=== PATIENT | female | born 1980 | race Caucasian/White ===

== ENCOUNTER 2019-05-12 12:17 | Inpatient (IN) | payer MEDICARE, MEDICAID ==
[~2019-05-12] VITALS: Ht 157.5 cm; Wt 80.5 kg
[~2019-05-12 12:17] MED LIST: ALBU18HF2 INH; CLON-512 PO; FLUT16SP26 INH; MOT200T PO; TRAM50TA2 PO; ZIPR60CA7 PO; [UNRECOGNIZED DRUG - CODE] PO
[2019-05-12 20:45] VITALS: BP 135/89
[2019-05-12] MEDS ORDERED: loperamide 2mg capsule PO PRN (21:35)
[2019-05-12] MEDS: LORazepam 1 MG tablet PO PRN (21:49)
[2019-05-12] MEDS ORDERED: NO HOME MEDS (23:12)
--- NOTE | 2019-05-13 03:34 | NUR ---
Admit Note: This admit is a 38 y/o female, admitted directly from [facility] to the unit at 2014. She was accompanied to the unit by JEANIE Torres and . She was wanded for contraband, then taken to the shower where 2 RN's checked her skin. She was allowed to shower, then oriented to the unit and her room. She was cooperative with the admit process. The patient states that she lives with her mom. She claims that she and her mother were having an argument that got out of hand. The patient reportedly was banging her head against a wall and biting herself. She admits to banging her head, but states that she was possessed. The patient was guarded with information, and she seems to experience paranoid delusions, believing that her mother is the Devil. The patient's mom states that the patient hears voices and is talking to them all day. "She screams and yells at them." The patient has not been taking any medications. She has multiple PHF admissions, and has difficulty maintaining a home due to her symptoms.
[2019-05-13 07:10] LABS: HEMOGLOBIN A1C 5.2 % (4.5-6.2)
[2019-05-13 07:45] LABS: CHOL/HDL RATIO 3.5 (0.00-4.99); CHOLESTEROL 188 MG/DL (0-200); HDL CHOLESTEROL 54 MG/DL (35-60); LDL CHOLESTEROL 126 MG/DL (50-100); TRIGLYCERIDES 48 MG/DL (20-135)
[2019-05-13 08:00] VITALS: BP 134/80
[2019-05-13] MEDS: LORazepam 1 MG tablet PO PRN ×2 (09:48→18:14)
[2019-05-13] MEDS ORDERED: clonazePAM 1mg tablet PO ONE (12:35)
[2019-05-13] MEDS: hydrOXYzine 25 MG tablet PO PRN (16:54)
--- NOTE | 2019-05-13 17:12 | NUR ---
Nursing Progress Note: Legal hold: Client on involuntary status for DTS Report received from Yuli ELIZABETH with use of SBAR Why are they here: This admit is a 38 y/o female, admitted directly from [facility] to the unit at 2014. The patient states that she lives with her mom. She claims that she and her mother were having an argument that got out of hand. The patient reportedly was banging her head against a wall and biting herself. She admits to banging her head, but states that she was possessed. The patient was guarded with information, and she seems to experience paranoid delusions, believing that her mother is the Devil. The patient's mom states that the patient hears voices and is talking to them all day. "She screams and yells at them." The patient has not been taking any medications. She has multiple PHF admissions, and has difficulty maintaining a home due to her symptoms. Assessment What has happened this shift: Pt spent much of the day finding things to make issue of and threatening lawsuits upon d/c. For example, policy states no shaving above the knees and she wanted to shave her groin. Pt also c/o her meals. Pt exhibited delusional thoughts at times through out the day. At one point she stated that she needed more snacks to feed the babies in her belly, the babies want what they want Pt also observed sucking on a pacifier and she states it helps her with her anxiety. At times during the day as limits were set, pt would become loud and yelled derogatory statements at staff which required verbal limit setting which she hesitantly responded to. Pt did voice more delusional thoughts later in the day. Pt stated she was battling the spirits and the female techs here were all related and had stole her soul but that she had God on her side and she was going to win it back. S/I, H/I: denies A/VH: denies Sleep: no naps ADL's: showered once and wanted to take a second Group attendance: partial Were meds taken: yes Any med S/E no Mental Status Exam Appearance: green scrubs, clean Eye contact: good Behavior: labile Speech: clear Mood: paranoid Affect: anxious Thought process: tangential Thought Content: delusional Cognition: intact Insight: poor Judgment: fair Interventions PRN's used: ativan, klonopin, atarax Therapeutic interventions: AM provided 1:1 assessment with therapeutic communication and active listening; medication administration/education/monitoring, Q 15 minute safety checks. Restraints/seclusion/emergency medication: none Justification of Continued Inpatient Treatment: Pt exhibiting erratic behavior based on delusional thought content.
[2019-05-13] MEDS ORDERED: clonazePAM 1mg tablet PO PRN (17:30)
[2019-05-13 20:00] VITALS: BP 132/92
[2019-05-13] MEDS ORDERED: quetiapine 100mg tablet PO SCH (21:00)
--- NOTE | 2019-05-14 03:38 | NUR ---
Nursing Progress Note: Legal hold: Client on involuntary status for DTS Report received from CLARA Villela with use of SBAR Why are they here: This admit is a 38 y/o female, admitted directly from [facility] to the unit at 2014. The patient states that she lives with her mom. She claims that she and her mother were having an argument that got out of hand. The patient reportedly was banging her head against a wall and biting herself. She admits to banging her head, but states that she was possessed. The patient was guarded with information, and she seems to experience paranoid delusions, believing that her mother is the Devil. The patient's mom states that the patient hears voices and is talking to them all day. "She screams and yells at them." The patient has not been taking any medications. She has multiple PHF admissions, and has difficulty maintaining a home due to her symptoms. Assessment What has happened this shift: Patient pacing the hardin at the beginning of shift. Shortly after shift change she approached this poem writer to use a set of headphones in which she appeared to enjoy. The patient didn't remove headphones until returning to bed. She ate HS snack in the group room where she also took her medication. Patient did not remove the headset for physical assessment and didn't respond to any questions later on. Patient continues to wrap up in her blanket and suck on a pacifier when out in the hardin and group room. S/I, H/I: unable to assess A/VH: did not appear to be responding to internal stimuli Sleep: asleep at this time ADL's: independent Group attendance: no groups this shift Were meds taken: yes Any med S/E: None observed, none reported Mental Status Exam Appearance: green scrubs, clean, sucking on a pacifier while wrapped in a blanket Eye contact: good Behavior: labile, delusional Speech: clear Mood: anxious Affect: congruent to mood Thought process: unable to assess Thought Content: unable to assess Cognition: intact Insight: poor Judgment: fair Interventions PRN's used: none at this time Therapeutic interventions: AM provided 1:1 assessment with therapeutic communication and active listening; medication administration/education/monitoring, Q 15 minute safety checks. Restraints/seclusion/emergency medication: none Justification of Continued Inpatient Treatment: Pt exhibiting erratic behavior based on delusional thought content.
[2019-05-14 08:00] VITALS: BP 120/82
[2019-05-14] MEDS: clonazePAM 1mg tablet PO SCH ×2 (08:06→19:39)
[2019-05-14] MEDS: hydrOXYzine 25 MG tablet PO PRN (09:42)
[2019-05-14] MEDS: NICOTINE POLACRILEX 2 MG LOZENGE BC PRN ×3 (09:43→18:55)
[2019-05-14] MEDS: LORazepam 1 MG tablet PO PRN ×2 (10:47→16:09)
--- NOTE | 2019-05-14 18:38 | NUR ---
Nursing Progress Note: Legal hold: Client on involuntary status for DTS Report received from CLARA Roldan with use of SBAR Why are they here: This admit is a 38 y/o female, admitted directly from [facility] to the unit at 2014. The patient states that she lives with her mom. She claims that she and her mother were having an argument that got out of hand. The patient reportedly was banging her head against a wall and biting herself. She admits to banging her head, but states that she was possessed. The patient was guarded with information, and she seems to experience paranoid delusions, believing that her mother is the Devil. The patient's mom states that the patient hears voices and is talking to them all day. "She screams and yells at them." The patient has not been taking any medications. She has multiple PHF admissions, and has difficulty maintaining a home due to her symptoms. Assessment What has happened this shift: Patient was awake at change of shift., pleasant and calm, she became increasingly labile throughout the day trying to split staff and yelling at nurse. Stated she would like to "beat your face in" to this nurse. Demanding and inpatient, threatening staff verbally. Did not make any physical threats. Security did speak with patient regarding threats. She was medication compliant and eating well. Delusional and religiously preoccupied. "Read proverbs, I am the anti-momo." S/I, H/I: unable to assess A/VH: did not appear to be responding to internal stimuli Sleep: None ADL's: independent Group attendance: no Were meds taken: yes Any med S/E: None observed, none reported Mental Status Exam Appearance: green scrubs, clean, sucking on a pacifier while wrapped in a blanket Eye contact: good Behavior: labile, delusional Speech: clear Mood: anxious Affect: congruent to mood Thought process: unable to assess Thought Content: unable to assess Cognition: intact Insight: poor Judgment: poor Interventions PRN's used: Ativan, Atarax Therapeutic interventions: AM provided 1:1 assessment with therapeutic communication and active listening; medication administration/education/monitoring, Q 15 minute safety checks. Restraints/seclusion/emergency medication: none Justification of Continued Inpatient Treatment: Pt exhibiting erratic behavior based on delusional thought content.
[2019-05-14 19:57] VITALS: BP 144/103
[2019-05-14] MEDS: quetiapine 100mg tablet PO SCH (20:19)
--- NOTE | 2019-05-15 01:27 | NUR ---
Nursing Progress Note: Legal hold: 5150 Client on involuntary status for DTS Report received from CLARA Villela with use of SBAR Why are they here: This admit is a 38 y/o female, admitted directly from [facility] to the unit at 2015. The patient states that she lives with her mom. She claims that she and her mother were having an argument that got out of hand. The patient reportedly was banging her head against a wall and biting herself. She admits to banging her head, but states that she was possessed. The patient was guarded with information, and she seems to experience paranoid delusions, believing that her mother is the Devil. The patient's mom states that the patient hears voices and is talking to them all day. "She screams and yells at them." The patient has not been taking any medications. She has multiple PHF admissions, and has difficulty maintaining a home due to her symptoms. Assessment What has happened this shift: Pt spent majority of time in her room, listening to music or resting. During 1:1, pt was guarded when asked to elaborate on initial assessment questions. She stated "You'll find out when you find out. This place is going to have iron pellet tester. They'll hear about it." This RN checked in later to offer pt a snack and attempt to illicit more information from the pt. Pt stated she wasn't suicidal "God doesn't want me to " but is depressed 10/10. Pt spontaneously stated, "Crystal kicks me out of groups because I am with the spirits. It's wrong, but it's how they do it here." Pt has grandiose plans, stating "I'm going to open a hospital, a [facility], where patient's can come and hit the treadmill and get into classes without prerequisites but doctors are still present." Pt listening to headphones during medication pass, and was continuing to express yarsanism centered delusions, "I am possessed by spirits and I need them to get into someone else. This is just how it has to be." Pt compliant with medication administration, and attempted to sleep after meds were given. Pt up within the first two hours, asking for snacks and stating, "It's the spirits." This RN redirected pt to bed, and pt has been sleeping well. S/I, H/I: Denies A/VH: Denies Sleep: See Sleep Assessment ADL's: Independent Group attendance: N/A Were meds taken: Yes Any med S/E: None observed nor reported Mental Status Exam Appearance: Long hair in a ponytail, wearing unit green scrubs and nonskid socks, sucking on a pacifier and carrying two stuffed animals Eye contact: Direct Behavior: Resting in room, pacing halls, listening to headphones while dancing/rocking, Intermittent interaction with peers, Attended HS Snack, Guarded Speech: Clear, Normal Rate and Rhythm Mood: Depressed, Anxious, Labile, Easily Agitated Affect: Blunted Thought process: Delusional and paranoid Thought Content: Wants to discharge, Is planning on suing the hospital, Wanting snacks Cognition: A&Ox3 (off for event) Insight: Poor Judgment: Poor Interventions PRN's used: Nicotine Lozenge Therapeutic interventions: AM provided 1:1 assessment with therapeutic communication and active listening; medication administration/education/monitoring, Q 15 minute safety checks. Restraints/seclusion/emergency medication: none Justification of Continued Inpatient Treatment: Pt exhibiting manic, erratic behavior based on delusional thought content.
[2019-05-15] MEDS: clonazePAM 1mg tablet PO SCH ×2 (07:13→19:25)
[2019-05-15 08:00] VITALS: BP 139/105
[2019-05-15] MEDS: LORazepam 1 MG tablet PO PRN ×2 (09:07→15:28)
[2019-05-15] MEDS: quetiapine 100mg tablet PO SCH ×2 (10:52→20:28)
[2019-05-15] MEDS: NICOTINE POLACRILEX 2 MG LOZENGE BC PRN ×2 (11:44→14:05)
[2019-05-15] MEDS: hydrOXYzine 25 MG tablet PO PRN (14:05)
--- NOTE | 2019-05-15 15:50 | NUR ---
Nursing Progress Note: Legal hold: 5150 Client on involuntary status for DTS Report received from CLARA Villela with use of SBAR Why are they here: This admit is a 38 y/o female, admitted directly from [facility] to the unit at 2015. The patient states that she lives with her mom. She claims that she and her mother were having an argument that got out of hand. The patient reportedly was banging her head against a wall and biting herself. She admits to banging her head, but states that she was possessed. The patient was guarded with information, and she seems to experience paranoid delusions, believing that her mother is the Devil. The patient's mom states that the patient hears voices and is talking to them all day. "She screams and yells at them." The patient has not been taking any medications. She has multiple PHF admissions, and has difficulty maintaining a home due to her symptoms. Assessment What has happened this shift: Pt was up ambulating in the halls at change of shift with headphones on. She is seen dancing and singing. She is pleasant and cooperative with care and takes her morning medications. After breakfast, she is seen walking in the hallway speaking loudly and cussing followed by staff member. This communications writer followed her to her room and asked her why she was behaving this way. Patient states that she believes one of the nurses here is a witch and is working with [place]. Pt reports to me in a now normal tone without explitives, that she is an "dottie chosen by God and that witch nurse is putting cast out dogs from formerly [facility] in his ass". Pt continued to report that there are demons all over the earth as well as angels. Pt then proceeds to write down bible verses for this communications writer to look up to learn "the truth about what God really wants". She reports "God has given me the gift of interpretation, I am an interpreting dottie". She tells many staff members that she is discharging today and asks to get clothing out of the community closet. Pt looked in the clothing closet and states that "all of these clothes are the wrong size. This is what the demons do, they mess with me. They will make it where there are no clothes in here that fit me". She takes her medications without incident. She took a shower today and states that this made her feel good. A one time dose of seroquel was ordered and given at 1030. Since the administration of this medication, she has had decreased lability and no verbal outbursts. Pt reports she is anxious, PRN ativan is given for this. After lunch, Pt reports that she is feeling anxious still and PRN atarax was given as well as a nicotine lozenge per request. Pt eats snack and meals in the community room but does not participate in groups. Will continue to monitor. S/I, H/I: Denies A/VH: Denies Sleep: naps minimally throughout the day ADL's: Independent Group attendance: No Were meds taken: Yes Any med S/E: None observed nor reported Mental Status Exam Appearance: Long hair in a ponytail, wearing unit green scrubs and nonskid socks, sucking on a pacifier and carrying two stuffed animals Eye contact: Direct Behavior: Resting in room, pacing halls, listening to headphones while dancing/rocking, Intermittent interaction with peers, Guarded Speech: Clear, Normal Rate and Rhythm Mood: Anxious, Labile Affect: Blunted Thought process: Delusional and paranoid Thought Content: Wants to discharge, tenriism delusions and grandiose delusions: "I am an dottie chosen by God" Cognition: A&Ox3 (not ot event) Insight: Poor Judgment: Poor Interventions PRN's used: Nicotine Lozenge, atarax, ativan x2 Therapeutic interventions: AM provided 1:1 assessment with therapeutic communication and active listening; medication administration/education/monitoring, Q 15 minute safety checks. Restraints/seclusion/emergency medication: none Justification of Continued Inpatient Treatment: Pt exhibiting manic, erratic behavior based on delusional thought content.
[2019-05-15 20:00] VITALS: BP 144/94
[2019-05-15] MEDS ORDERED: zolpidem 5mg tablet PO SCH (21:00)
--- NOTE | 2019-05-15 23:36 | NUR ---
Nursing Progress Note: Legal hold: 5250 Client on involuntary status for DTS Report received from CLARA Villela with use of SBAR Why are they here: This admit is a 38 y/o female, admitted directly from [facility] to the unit at 2014. The patient states that she lives with her mom. She claims that she and her mother were having an argument that got out of hand. The patient reportedly was banging her head against a wall and biting herself. She admits to banging her head, but states that she was possessed. The patient was guarded with information, and she seems to experience paranoid delusions, believing that her mother is the Devil. The patient's mom states that the patient hears voices and is talking to them all day. "She screams and yells at them." The patient has not been taking any medications. She has multiple PHF admissions, and has difficulty maintaining a home due to her symptoms. Assessment What has happened this shift: Pt agitated regarding headphones at change of shift, requesting any PRNs she had available. After discussion with the RN, pt decided she would wait for her give anti-anxiety medication. Pt seemed calmer after this discussion, so this RN completed 1:1 at bedside. 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 I need to see a medical MD to get this sorted. I want Amistad or Dilaudid, it's what I used to take." Pt states she is depressed but not suicidal, but did not wish to elaborate on the circumstances that are making her feel this way, becoming defensive and guarded, "I don't really feel like talking about it." Pt visited mom for approximately 10 minutes before the mother was escorted out due to the pt becoming agitated. After the visit the pt was walking the halls stating "That fucking bitch, never want to see her. She has angels trying to control everything, thinks I don't know". This RN directed pt to room and encourage pt to not feed into that negative energy with negative words; pt considered this and stated "I'm just telling someone about it." RN gave give anxiolytic and pt listened to music via headphones, saying that they are helpful, too. MD Alvarez discussed pt's 5250 and pain management. This RN had pt sign 5250; pt wrote numerous political, yazidism, and fictional people on it as "People I will have represent me. These are all my upper leather sorter." After signing, pt requested a snack and was agreeable, telling this RN "Thank you." added Ambien to nightly regimen to help pt achieve better sleep. S/I, H/I: Denies A/VH: Denies Sleep: See Sleep Assessment ADL's: Independent Group attendance: N/A Were meds taken: Yes Any med S/E: None observed nor reported Mental Status Exam Appearance: Long hair in a ponytail, wearing unit green scrubs and nonskid socks, sucking on a pacifier and carrying two stuffed animals Eye contact: Direct Behavior: Resting in room, pacing halls, listening to headphones, Intermittent interaction with peers, Attended HS Snack, Guarded, Visitation with mother Speech: Clear, Normal Rate and Rhythm Mood: [id number], Anxious 8/10, Easily Agitated & Labile Affect: Blunted Thought process: Delusional Thought Content: Wanting opiates, not wanting to live with her mom Cognition: A&Ox3 (off for event) Insight: Poor Judgment: Poor Interventions PRN's used: None Therapeutic interventions: AM provided 1:1 assessment with therapeutic communication and active listening; medication administration/education/monitoring, Q 15 minute safety checks. Restraints/seclusion/emergency medication: none Justification of Continued Inpatient Treatment: Pt exhibiting manic, erratic behavior based on delusional thought content. Addendum: 05/16/19 at 0455 by Carolyn Joyner RN 399: Pt awoke requesting headphones. Pt given headphones. 447: Pt awoke requesting Ativan; RN explained that the MD had discontinued it-- offered available PRNs. Pt because increasingly agitated stating "You're a stupid bitch, you wrote things on my affadavit that are not true. You are being surveyed, you are a shell sieve operator or nurse practicioner or whatever, you don't know what the fuck you are doing. You're lying to me, and I'm going take care of it." Pt is pointing at RN and stating "I know you took my fucking meds bitch, you are so fucking high." Addendum: 05/16/19 at 0510 by Carolyn Joyner RN Pt approached this RN again, pointing fingers accusing this RN of taking her medications. "I'm onto you. TITUS is on your asses." Pt continues name calling and pacing. RN attempted de-escalation techniques of redirection, open body posture, providing space to no avail; pt overtalked and mocked this RN. Addendum: 05/16/19 at 0516 by Carolyn Joyner RN Order from SARAN Siddiqui to administer 2mg Ativan PO Once. Addendum: 05/16/19 at 05 by Carolyn Joyner RN Ativan Administered. During administration pass, pt is accusing RNs of being high then laughing, say "Oh sure, Brenedn's sisters. You're all fucking high." Pt is hypervigilant and continues to pace halls with headphones after Ativan is taken. Addendum: 05/16/19 at 0538 by Carolyn Joyner RN Pt is not willing to go rest in her room; she is standing in the hardin making yazidism comments and telling staff that they are going to hell and she is a part of the TITUS.
[2019-05-16] MEDS ORDERED: LORazepam 1 MG tablet PO ONE (05:05)
[2019-05-16 08:00] VITALS: BP 133/85
[2019-05-16] MEDS: clonazePAM 1mg tablet PO SCH ×2 (08:00→18:38)
[2019-05-16] MEDS: quetiapine 100mg tablet PO SCH ×4 (08:00→19:26)
[2019-05-16 09:45] VITALS: BP 133/85
[2019-05-16] MEDS: mag hydrox/Alum hydrox/simeth 30ml oral suspension PO PRN (11:47)
[2019-05-16] MEDS: NICOTINE POLACRILEX 2 MG LOZENGE BC PRN (11:48)
--- NOTE | 2019-05-16 15:32 | NUR ---
Nursing Progress Note: Legal hold: 5250 Client on involuntary status for DTS Report received from CLARA Villela with use of SBAR Why are they here: This admit is a 38 y/o female, admitted directly from [facility] to the unit at 2014. The patient states that she lives with her mom. She claims that she and her mother were having an argument that got out of hand. The patient reportedly was banging her head against a wall and biting herself. She admits to banging her head, but states that she was possessed. The patient was guarded with information, and she seems to experience paranoid delusions, believing that her mother is the Devil. The patient's mom states that the patient hears voices and is talking to them all day. "She screams and yells at them." The patient has not been taking any medications. She has multiple PHF admissions, and has difficulty maintaining a home due to her symptoms. Assessment What has happened this shift: Client was awake and ambulating on unit to start shift. Client seems religiously preoccupied and made several statements about, "saving Delroy" using her, "power". No behavioral issues as of this writing. Client will redirect but sometimes takes several prompts. Compliant with medications and assessment this am. She wants, "Ativan and Roxies" and plans to request these medications once she sees a Doctor today. Client has been focused on food this am and had to be redirected x 3 as she was hoarding and consuming am snacks. Client complains of generalized pain and requested Motrin. Dr. Ricco lee. Client seems to be seeking Ativan and, "my Roxies" at frequent intervals. Client had a visit with the Doctor today which she tolerated well. S/I, H/I: Denies A/VH: Denies Sleep: See Sleep Assessment ADL's: Independent Group attendance: N/A Were meds taken: Yes Any med S/E: None observed nor reported Mental Status Exam Appearance: Long hair in a ponytail, wearing unit green scrubs and nonskid socks, sucking on a pacifier and carrying two stuffed animals Eye contact: Direct Behavior: Resting in room, pacing halls, listening to headphones, Intermittent interaction with peers, Attended HS Snack, Guarded, Visitation with mother Speech: Clear, Normal Rate and Rhythm Mood: [id number]/10, Anxious 8/10, Easily Agitated & Labile Affect: Blunted Thought process: Delusional Thought Content: Wanting opiates, not wanting to live with her mom Cognition: A&Ox4 Insight: Poor Judgment: Poor Interventions PRN's used: None Therapeutic interventions: AM provided 1:1 assessment with therapeutic communication and active listening; medication administration/education/monitoring, Q 15 minute safety checks. Restraints/seclusion/emergency medication: none Justification of Continued Inpatient Treatment: Pt exhibiting manic, erratic behavior, delusional thought process.
[2019-05-16] MEDS: LORazepam 1 MG tablet PO PRN (16:54)
[2019-05-16] MEDS: OLANZapine 2.5MG tablet PO PRN (18:38)
[2019-05-16 20:00] VITALS: BP 139/95
--- NOTE | 2019-05-17 04:16 | NUR ---
Nursing Progress Note: Legal hold: 5250 Client on involuntary status for DTS Report received from MARY Ellis with use of SBAR Why are they here: This admit is a 38 y/o female, admitted directly from [facility] to the unit at 2014. The patient states that she lives with her mom. She claims that she and her mother were having an argument that got out of hand. The patient reportedly was banging her head against a wall and biting herself. She admits to banging her head, but states that she was possessed. The patient was guarded with information, and she seems to experience paranoid delusions, believing that her mother is the Devil. The patient's mom states that the patient hears voices and is talking to them all day. "She screams and yells at them." The patient has not been taking any medications. She has multiple PHF admissions, and has difficulty maintaining a home due to her symptoms. Assessment What has happened this shift: Pt pacing the halls with headphones and sucking on pacifier majority of shift. She attended HS Snack; 1:1 done in the hallway as pt did not wish to go to her room. Pt states she is "the same" as yesterday and did not want to elaborate further "Just give me my meds, I know what time I am to get each one." Pt expressed some religiosity chris to previous shifts, and had intermittent bursts of cussing while walking but not directed at any individual in particular. Pt went to bed shortly after medication administration. S/I, H/I: Denies A/VH: Denies Sleep: See Sleep Assessment ADL's: Independent Group attendance: N/A Were meds taken: Yes Any med S/E: None observed nor reported Mental Status Exam Appearance: Long hair in a ponytail, wearing unit green scrubs and nonskid socks, sucking on a pacifier Eye contact: Direct Behavior: Resting in room, pacing halls, listening to headphones, Attended HS Snack, Guarded Speech: Clear, Normal Rate and Rhythm Mood: [id number]/10, Anxious 8/10, Easily Agitated & Labile Affect: Blunted Thought process: Delusional Thought Content: Getting a addiction counselor Cognition: A&Ox3 (off for event) Insight: Poor Judgment: Poor Interventions PRN's used: None Therapeutic interventions: AM provided 1:1 assessment with therapeutic communication and active listening; medication administration/education/monitoring, Q 15 minute safety checks. Restraints/seclusion/emergency medication: none Justification of Continued Inpatient Treatment: Pt exhibiting manic, erratic behavior based on delusional thought content.
[2019-05-17] MEDS: LORazepam 1 MG tablet PO PRN ×2 (05:30→12:54)
[2019-05-17] MEDS: quetiapine 100mg tablet PO SCH ×3 (07:01→18:41)
[2019-05-17] MEDS: OLANZapine 2.5MG tablet PO PRN ×3 (07:01→17:00)
[2019-05-17] MEDS: clonazePAM 1mg tablet PO SCH ×2 (07:03→18:41)
[2019-05-17 08:17] VITALS: BP 136/77
[2019-05-17] MEDS: NICOTINE POLACRILEX 2 MG LOZENGE BC PRN ×3 (09:07→17:00)
--- NOTE | 2019-05-17 09:47 | NUR ---
Initial: Pt admit w/ psychosis AOx3. PO 75-100% regular diet meeting needs. LBM 05/17. No nutrition concerns at this time. Will continue to monitor. Rec: 1. continue regular diet 2. routine bowel care Addendum: 05/17/19 at [address] Amended: Links added.
[2019-05-17] MEDS: quetiapine 100mg tablet PO PRN (14:59)
--- NOTE | 2019-05-17 17:09 | NUR ---
Nursing Progress Note: Legal hold: 5250 Client on involuntary status for DTS Report received from Deneen Betancourt RN with use of SBAR Why are they here: This admit is a 38 y/o female, admitted directly from [facility] to the unit at 2014. The patient states that she lives with her mom. She claims that she and her mother were having an argument that got out of hand. The patient reportedly was banging her head against a wall and biting herself. She admits to banging her head, but states that she was possessed. The patient was guarded with information, and she seems to experience paranoid delusions, believing that her mother is the Devil. The patient's mom states that the patient hears voices and is talking to them all day. "She screams and yells at them." The patient has not been taking any medications. She has multiple PHF admissions, and has difficulty maintaining a home due to her symptoms. Assessment What has happened this shift: Pt is ambulating in the halls at change of shift. Pt asks immediately upon this technical document writer entering the unit if she can have her PRN Zyprexa and Ativan. Explained to Pt that it was too early for administration of Ativan, but scheduled medications and PRN Zyprexa were given without incident. Pt continues to have fixed delusions rooted in religiosity and states "I am an arch dottie". She denies HI/SI, VH, but she does report that she talks to "other angels and they talk back". She eats her meals and snacks in the community room. She is seen after breakfast in the [place] telling a unit tech loudly that her "production utility worker is watching you already". She had a shower today. She was heard yelling in her room after lunch and was found by a unit tech who reports that she was holding the headphones and when asked by this nurse what was going on, she stated that she was possessed by the anti-Kingsley and that he biting her. Bite rojas seen on bilateral hands, no broken skin or bleeding noted. Charge nurse informed of behavior. S/I, H/I: Denies A/VH: Denies, but states that she hears and talks to "other angels". Sleep: rests intermittently throughout the day ADL's: Independent Group attendance: Were meds taken: Yes Any med S/E: None observed nor reported Mental Status Exam Appearance: Long hair in a ponytail, wearing unit green scrubs and nonskid socks Eye contact: Direct Behavior: Resting in room, pacing halls, listening to headphones, Guarded Speech: Clear, Normal Rate and Rhythm Mood: Depressed 7/10, Anxious 10/10, Easily Agitated & Labile Affect: Blunted Thought process: Delusional Thought Content: Getting a production utility worker, "I am an arch dottie chosen by God" Cognition: A&Ox3 (off for event) Insight: Poor Judgment: Poor Interventions PRN's used: None Therapeutic interventions: AM provided 1:1 assessment with therapeutic communication and active listening; medication administration/education/monitoring, Q 15 minute safety checks. Restraints/seclusion/emergency medication: none Justification of Continued Inpatient Treatment: Pt exhibiting manic, erratic behavior based on delusional thought content.
[2019-05-17 20:00] VITALS: BP 127/88
--- NOTE | 2019-05-18 00:33 | NUR ---
Nursing Progress Note: Legal hold: 5250 Client on involuntary status for DTS Report received from MARY Prado with use of SBAR Why are they here: This admit is a 38 y/o female, admitted directly from [facility] to the unit at 2014. The patient states that she lives with her mom. She claims that she and her mother were having an argument that got out of hand. The patient reportedly was banging her head against a wall and biting herself. She admits to banging her head, but states that she was possessed. The patient was guarded with information, and she seems to experience paranoid delusions, believing that her mother is the Devil. The patient's mom states that the patient hears voices and is talking to them all day. "She screams and yells at them." The patient has not been taking any medications. She has multiple PHF admissions, and has difficulty maintaining a home due to her symptoms. Assessment What has happened this shift: Pt walking around unit and approached this RN requesting give medications at start of shift. Medications given; pt went to bedroom to rest and this RN completed 1:1 at bedside. Pt maintains latter day delusions regarding others being possessed by spirits. She presented as more sedated than usual but requested PRN Ativan-- RN educated pt to wait until she really needs it and let the medications just given take effect first to evaluate whether the PRN is necessary. Pt agreed. She states her depression is 8/10 and Anxiety 7/10. She went to sleep after assessment but woke for HS snack then returned to bed where she promptly fell asleep. S/I, H/I: Denies A/VH: Denies Sleep: See Sleep Assessment ADL's: Independent Group attendance: N/A Were meds taken: Yes Any med S/E: None observed nor reported Mental Status Exam Appearance: Long hair, wearing unit green scrubs and nonskid socks, wearing headphones Eye contact: Direct Behavior: Resting in room, listening to headphones, Attended HS Snack Speech: Clear, Normal Rate and Rhythm Mood: Depressed 8/10, Anxious 7/10, Easily Agitated & Labile Affect: Blunted Thought process: Delusional Thought Content: Wanting PRN medications, Delusions Cognition: A&Ox3 (off for event) Insight: Poor Judgment: Poor to fair Interventions PRN's used: None Therapeutic interventions: AM provided 1:1 assessment with therapeutic communication and active listening; medication administration/education/monitoring, Q 15 minute safety checks. Restraints/seclusion/emergency medication: none Justification of Continued Inpatient Treatment: Pt exhibiting manic, erratic behavior based on delusional thought content.
[2019-05-18] MEDS: LORazepam 1 MG tablet PO PRN ×3 (00:47→13:38)
[2019-05-18] MEDS: quetiapine 100mg tablet PO SCH ×3 (07:11→19:12)
[2019-05-18] MEDS: clonazePAM 1mg tablet PO SCH ×2 (07:13→19:12)
[2019-05-18] MEDS: OLANZapine 2.5MG tablet PO PRN ×3 (07:14→16:27)
[2019-05-18 07:46] VITALS: BP 126/84
[2019-05-18] MEDS ORDERED: tuberculin, purif. prot. deriv. 5 units/0.1ml ID ONE (11:00)
--- NOTE | 2019-05-18 11:00 | NUR ---
DISCHARGE PLANNING: Called NAM and LVM, awaiting call back
--- NOTE | 2019-05-18 11:08 | NUR ---
DISCHARGE PLANNING: Called [place] [facility] and [facility]
--- NOTE | 2019-05-18 13:56 | NUR ---
DISCHARGE PLANNING: Sent referral to [facility]
--- NOTE | 2019-05-18 16:25 | NUR ---
Nursing Progress Note: Legal hold: 5250 Client on involuntary status for DTS Report received from MARY Onofre with use of SBAR Why are they here: This admit is a 38 y/o female, admitted directly from [facility] to the unit at 2014. The patient states that she lives with her mom. She claims that she and her mother were having an argument that got out of hand. The patient reportedly was banging her head against a wall and biting herself. She admits to banging her head, but states that she was possessed. The patient was guarded with information, and she seems to experience paranoid delusions, believing that her mother is the Devil. The patient's mom states that the patient hears voices and is talking to them all day. "She screams and yells at them." The patient has not been taking any medications. She has multiple PHF admissions, and has difficulty maintaining a home due to her symptoms. Assessment What has happened this shift: Pt is up and ambulating in the hallway at change of shift. She reports that she is anxious and asks for medications upon first seeing this parts data writer. She is pleasant and cooperative with care. She took a shower after breakfast and was found yelling and crying sitting outside of the shower. She reports that she lost her red stuffed bear. This parts data writer had found the stuffed animal on the floor outside of the community room and returned it to the patient. Pt was grateful. She reports being anxious throughout the day and reports perseverating on a word that she can't remember. She reports that "the torn wheat of [place] took the word out of my head as soon as I remembered it". PRN Ativan and Zyprexa were given throughout the day. Pt had 2 episodes of raised voice when using the telephone but was redirectable. S/I, H/I: Denies A/VH: Denies Sleep: naps intermittently throughout the day ADL's: Independent Group attendance: no Were meds taken: Yes Any med S/E: None observed nor reported Mental Status Exam Appearance: Long hair, wearing unit green scrubs and nonskid socks Eye contact: Direct Behavior: Resting in room, listening to headphones, talking on the phone Speech: Clear, Normal Rate and Rhythm Mood: Depressed 8/10, Anxious 7/10, Easily Agitated & Labile Affect: Blunted Thought process: Delusional Thought Content: Wanting PRN medications, Delusions Cognition: A&Ox3 (off for event) Insight: Poor Judgment: Poor to fair Interventions PRN's used: None Therapeutic interventions: AM provided 1:1 assessment with therapeutic communication and active listening; medication administration/education/monitoring, Q 15 minute safety checks. Restraints/seclusion/emergency medication: none Justification of Continued Inpatient Treatment: Pt exhibiting manic, erratic behavior based on delusional thought content.
--- NOTE | 2019-05-18 16:35 | NUR ---
Director Product Management for the [facility] was in to interview this patient.
[2019-05-18 19:41] VITALS: BP 135/90
[2019-05-18] MEDS: QUEtiapine 25mg tablet PO PRN (20:32)
--- NOTE | 2019-05-18 20:47 | NUR ---
Nursing Progress Note: Legal hold: 5250 Client on involuntary status for DTS Report received from MARY Topete with use of SBAR Why are they here: This admit is a 38 y/o female, admitted directly from [facility] to the unit at 2014. The patient states that she lives with her mom. She claims that she and her mother were having an argument that got out of hand. The patient reportedly was banging her head against a wall and biting herself. She admits to banging her head, but states that she was possessed. The patient was guarded with information, and she seems to experience paranoid delusions, believing that her mother is the Devil. The patient's mom states that the patient hears voices and is talking to them all day. "She screams and yells at them." The patient has not been taking any medications. She has multiple PHF admissions, and has difficulty maintaining a home due to her symptoms. Assessment What has happened this shift: Pt was resting in bed talking on the phone at change of shift. Pt denies s/i, denies h/i, pt denies a/vh but is seen talking to herself wandering the hallway. Pt naps intermittently during the shift and spends time listening to music quietly in her room prior to bed. Pt reports her day was good. S/I, H/I: Denies A/VH: Denies Sleep: naps intermittently throughout the day ADL's: Independent Group attendance: no Were meds taken: Yes Any med S/E: None observed nor reported Mental Status Exam Appearance: Long hair, wearing unit green scrubs and nonskid socks Eye contact: Direct Behavior: Resting in room, listening to headphones, talking on the phone Speech: Clear, Normal Rate and Rhythm Mood: Depressed, anxious Affect: Blunted Thought process: Delusional Thought Content: Wanting PRN medications, Delusions Cognition: A&Ox3 (off for event) Insight: Poor Judgment: Poor to fair Interventions PRN's used: None Therapeutic interventions: AM provided 1:1 assessment with therapeutic communication and active listening; medication administration/education/monitoring, Q 15 minute safety checks. Restraints/seclusion/emergency medication: none Justification of Continued Inpatient Treatment: Pt exhibiting manic, erratic behavior based on delusional thought content.
[2019-05-19] MEDS: OLANZapine 2.5MG tablet PO PRN ×2 (01:18→07:25)
[2019-05-19] MEDS: LORazepam 1 MG tablet PO PRN ×3 (04:21→15:45)
[2019-05-19] MEDS: NICOTINE POLACRILEX 2 MG LOZENGE BC PRN ×3 (07:25→12:30)
[2019-05-19] MEDS: clonazePAM 1mg tablet PO SCH ×2 (07:25→18:26)
[2019-05-19] MEDS: QUEtiapine 25mg tablet PO SCH ×2 (07:54→12:30)
[2019-05-19 08:00] VITALS: BP 141/93
--- NOTE | 2019-05-19 13:07 | NUR ---
DISCHARGE PLANNING: Accepted to [facility] as long as they have beds on dc. Call Quang, [phone] when dc ready, will not accept patient on a saturday
--- NOTE | 2019-05-19 16:33 | NUR ---
Nursing Progress Note: Legal hold: 5250 Client on involuntary status for DTS Report received from MARY Roldan with use of SBAR Why are they here: This admit is a 38 y/o female, admitted directly from [facility] to the unit at 2014. The patient states that she lives with her mom. She claims that she and her mother were having an argument that got out of hand. The patient reportedly was banging her head against a wall and biting herself. She admits to banging her head, but states that she was possessed. The patient was guarded with information, and she seems to experience paranoid delusions, believing that her mother is the Devil. The patient's mom states that the patient hears voices and is talking to them all day. "She screams and yells at them." The patient has not been taking any medications. She has multiple PHF admissions, and has difficulty maintaining a home due to her symptoms. Assessment What has happened this shift: Pt was resting in bed peacefully at change of shift. Pt denies SI/HI, pt denies AH/VH but is seen talking to herself wandering the hallway. Pt naps intermittently during the shift and spends time listening to music. She eats meals and snacks in the community room and takes her medications without incident. She took multiple showers today. She reported some concerns regarding her medications being changed. She was worried that she was no longer getting PRN Zyprexa. Explained to patient that Zyprexa was changed to Seroquel PRN. Pt verbalized understanding. S/I, H/I: Denies A/VH: Denies Sleep: naps intermittently throughout the day ADL's: Independent Group attendance: no Were meds taken: Yes Any med S/E: None observed nor reported Mental Status Exam Appearance: Long hair in ponytail, wearing unit green scrubs and nonskid socks Eye contact: Direct Behavior: Resting in room, listening to headphones, talking on the phone Speech: Clear, Normal Rate and Rhythm Mood: Depressed, anxious Affect: Blunted Thought process: Delusional Thought Content: Wanting PRN medications, Delusions Cognition: A&Ox3 (off for event) Insight: Poor Judgment: Poor to fair Interventions PRN's used: None Therapeutic interventions: AM provided 1:1 assessment with therapeutic communication and active listening; medication administration/education/monitoring, Q 15 minute safety checks. Restraints/seclusion/emergency medication: none Justification of Continued Inpatient Treatment: Pt exhibiting manic, erratic behavior based on delusional thought content.
--- NOTE | 2019-05-19 17:37 | NUR ---
Nursing Progress Note: Legal hold: T-con Client on involuntary status for GD Report received from MARY LOPEZ with use of SBAR Why are they here: Pt. was brought to the ER by EMS and is currently on a 5250 for GD, she is unable to provide for her own food, clothing, or intermediate. Pt. has a history of schizophrenia, and per her disease case manager her psychosis has been increasing and she has been non-compliant with medications. What happened this shift: Pt was sitting in community room at change of shift. She is pleasant and cooperative with care and takes her medications without incident. She is smiling. Pt denies SI/HI/AH/VH, however, She was heard in the shower room talking and yelling at someone who was not there. She reports leg pain stating "it hurts from my hips to my toes". Pt was positioned in bed with legs elevated and pt reported that this alleviated the pain. This hand sign writer trimmed the patient's toenails per request. Pt had a shower. She ate her meals and snacks in the community room. She requested that this hand sign writer braid her hair and this request was accommodated. Assessment: S/I, H/I: Denies A/VH: Denies, though she appears to be responding to internal stimuli Sleep: rests intermittently in the day ADL's: Independent Group attendance: No Were meds taken: Yes Any med S/E: None reported nor observed Mental Status Exam Appearance: Clean with long combed hair in a two gricelda, wearing green scrubs and nonskid socks Eye contact: Direct Behavior: resting, reading a book in her room, walking in the hallway Speech: Clear, Normal rate and rhythm Mood: reports good mood Affect: Animated Thought process: Delusional Thought Content: Fixed Delusions Cognition: A/Ox3 Insight: Poor Judgment: Poor Interventions PRN's used: Therapeutic interventions: 1:1 assessment, establishment of rapport, maintained safe therapeutic milieu, provided active listening with positive feedback, provided medication education and monitored for effects, monitored for change in behavior and provided needed interventions. Q 15 minute safety checks. Restraints/seclusion/emergency medication: N/A Justification of Continued Inpatient Treatment: Continued therapeutic support and medication management needed to provide stabilization, prevent decompensation, improve coping mechanisms decreasing risk to patient and re-admittance. Pt is now conserved.
[2019-05-19] MEDS ORDERED: quetiapine 100mg tablet PO SCH (19:00)
[2019-05-19 19:35] VITALS: BP 153/100
[2019-05-19] MEDS: QUEtiapine 25mg tablet PO PRN (19:53)
[2019-05-19] MEDS ORDERED: zolpidem 5mg tablet PO PRN (20:30)
--- NOTE | 2019-05-19 21:37 | NUR ---
Nursing Progress Note: Legal hold: 5250 Client on involuntary status for DTS Report received from MARY Villela with use of SBAR Why are they here: This admit is a 38 y/o female, admitted directly from [facility] to the unit at 2014. The patient states that she lives with her mom. She claims that she and her mother were having an argument that got out of hand. The patient reportedly was banging her head against a wall and biting herself. She admits to banging her head, but states that she was possessed. The patient was guarded with information, and she seems to experience paranoid delusions, believing that her mother is the Devil. The patient's mom states that the patient hears voices and is talking to them all day. "She screams and yells at them." The patient has not been taking any medications. She has multiple PHF admissions, and has difficulty maintaining a home due to her symptoms. Assessment What has happened this shift: Pt was walking in the hallway at change of shift. Pt denies s/i, denies a/vh, but was seen talking to herself in her room. Pt reports waking every hour or 1/2 hour during the night, she has trouble sleeping the entire night. We discussed taking less naps during the day and attempting to establish a regular sleeping pattern. Pt attempted to remain out of bed but then wanted to go to bed early. Pt talks about participating in groups today and shows me her art work she calls "tempestuous" and states this means "good and evil, yin and burdick" so she hawa a sun and millard. Pt was in a pleasant mood this evening listening to music and dancing. pt reports her appetite is "huge!" S/I, H/I: Denies A/VH: Denies Sleep: naps intermittently ADL's: Independent Group attendance: no Were meds taken: Yes Any med S/E: None observed nor reported Mental Status Exam Appearance: Long hair in ponytail, wearing unit green scrubs and nonskid socks Eye contact: Direct Behavior: listening to headphones, dancing Speech: Clear, Normal Rate and Rhythm Mood: anxious, although smiling and dancing Affect: Blunted Thought process: Delusional Thought Content: Wanting PRN medications, Delusions Cognition: A&Ox3 (off for event) Insight: Poor Judgment: Poor to fair Interventions PRN's used: None Therapeutic interventions: AM provided 1:1 assessment with therapeutic communication and active listening; medication administration/education/monitoring, Q 15 minute safety checks. Restraints/seclusion/emergency medication: none Justification of Continued Inpatient Treatment: Pt exhibiting manic, erratic behavior based on delusional thought content. Addendum: 05/20/19 at 0605 by Janet Tavares RN pt complaining about acid stomach and requested maalox.
[2019-05-19] MEDS: mag hydrox/Alum hydrox/simeth 30ml oral suspension PO PRN (22:05)
[2019-05-19] MEDS: quetiapine 100mg tablet PO PRN (22:06)
[2019-05-20] MEDS: LORazepam 1 MG tablet PO PRN ×2 (03:01→11:00)
[2019-05-20] MEDS: mag hydrox/Alum hydrox/simeth 30ml oral suspension PO PRN ×2 (06:04→16:12)
[2019-05-20] MEDS: QUEtiapine 25mg tablet PO SCH ×2 (07:53→13:18)
[2019-05-20] MEDS: clonazePAM 1mg tablet PO SCH ×2 (07:53→19:23)
[2019-05-20 08:00] VITALS: BP 122/90
[2019-05-20] MEDS: quetiapine 100mg tablet PO PRN (08:59)
[2019-05-20] MEDS: NICOTINE POLACRILEX 2 MG LOZENGE BC PRN ×2 (08:59→13:19)
--- NOTE | 2019-05-20 14:54 | NUR ---
PPD result: no induration noted - negative result
[2019-05-20] MEDS: clonazePAM 0.5mg tablet PO PRN (17:05)
--- NOTE | 2019-05-20 17:05 | NUR ---
Nursing Progress Note: Legal hold: 5250 Client on involuntary status for DTS Report received from MARY Roldan with use of SBAR Why are they here: This admit is a 38 y/o female, admitted directly from [facility] to the unit at 2014. The patient states that she lives with her mom. She claims that she and her mother were having an argument that got out of hand. The patient reportedly was banging her head against a wall and biting herself. She admits to banging her head, but states that she was possessed. The patient was guarded with information, and she seems to experience paranoid delusions, believing that her mother is the Devil. The patient's mom states that the patient hears voices and is talking to them all day. "She screams and yells at them." The patient has not been taking any medications. She has multiple PHF admissions, and has difficulty maintaining a home due to her symptoms. Assessment What has happened this shift: Patient up in visible on the unit pacing around most of the day. Patient did have one point during the day when she becomes very agitated and unapproachable. It seemed this was due to an increase in delusional thought process is, you FBI and TITUS people are all the same. Youre always out to get me. I felt you through the radio station patient left alone for a while and then when she came back out of her room she was a lot less paranoid and agitated and requested Maalox which she refused for indigestion. Patient denies suicidal thoughts. Pt perseverating on getting her medications updated by Dr. Bobby. Pt asked about ten times if he had changed the medications yet (which eventually did happen). S/I, H/I: Denies A/VH: Denies Sleep: naps intermittently throughout the day ADL's: Independent Group attendance: no Were meds taken: Yes Any med S/E: None observed nor reported Mental Status Exam Appearance: Long hair in ponytail, wearing unit green scrubs and nonskid socks Eye contact: Direct Behavior: Resting in room, listening to headphones, talking on the phone Speech: Clear, Normal Rate and Rhythm Mood: Depressed, anxious Affect: Blunted Thought process: Delusional Thought Content: Wanting PRN medications, Delusions Cognition: A&Ox3 (off for event) Insight: Poor Judgment: Poor to fair Interventions PRN's used: None Therapeutic interventions: AM provided 1:1 assessment with therapeutic communication and active listening; medication administration/education/monitoring, Q 15 minute safety checks. Restraints/seclusion/emergency medication: none Justification of Continued Inpatient Treatment: Pt exhibiting manic, erratic behavior based on delusional thought content.
[2019-05-20] MEDS: quetiapine 100mg tablet PO SCH (19:23)
[2019-05-20] MEDS: oxcarbazepine 150mg tablet PO SCH (19:23)
[2019-05-20 19:57] VITALS: BP 138/78
[2019-05-20] MEDS: QUEtiapine 25mg tablet PO PRN (22:45)
[2019-05-21] MEDS: clonazePAM 0.5mg tablet PO PRN ×4 (05:08→20:07)
[2019-05-21] MEDS: mag hydrox/Alum hydrox/simeth 30ml oral suspension PO PRN (05:16)
--- NOTE | 2019-05-21 05:25 | NUR ---
Nursing Progress Note: Legal hold: 5250 Client on involuntary status for DTS Report received from MARY Villela with use of SBAR Why are they here: This admit is a 38 y/o female, admitted directly from [facility] to the unit at 2014. The patient states that she lives with her mom. She claims that she and her mother were having an argument that got out of hand. The patient reportedly was banging her head against a wall and biting herself. She admits to banging her head, but states that she was possessed. The patient was guarded with information, and she seems to experience paranoid delusions, believing that her mother is the Devil. The patient's mom states that the patient hears voices and is talking to them all day. "She screams and yells at them." The patient has not been taking any medications. She has multiple PHF admissions, and has difficulty maintaining a home due to her symptoms. Assessment What has happened this shift: Pt was in her room at change of shift. Pt was in pleasant mood at the beginning of shift. Reports she had a good day but was requesting evening meds. Explained to patient she would need to wait for the scheduled time. Pt received a visit from her mother and reports the visit went well. Pt states "it was good but she's my old mom shes not my new mom, so much has changed shes not my mom anymore." Pt was tearful during the night and states "you wouldn't understand." Pt continues to have a large appetite and does not sleep well at night. She wakes often asking for prns, headphones, snacks, and reporting bad dreams. S/I, H/I: Denies A/VH: Denies Sleep: poor ADL's: Independent Group attendance: no Were meds taken: Yes Any med S/E: None observed nor reported Mental Status Exam Appearance: Long hair in ponytail, wearing unit green scrubs and nonskid socks Eye contact: Direct Behavior: Resting in room, listening to headphones, talking on the phone Speech: Clear, Normal Rate and Rhythm Mood: Depressed, anxious Affect: Blunted, labile tearful at times. Thought process: Delusional Thought Content: Wanting PRN medications, Delusions Cognition: A&Ox3 (off for event) Insight: Poor Judgment: Poor to fair Interventions PRN's used: Maalox, seroquel, klonopin Therapeutic interventions: AM provided 1:1 assessment with therapeutic communication and active listening; medication administration/education/monitoring, Q 15 minute safety checks. Restraints/seclusion/emergency medication: none Justification of Continued Inpatient Treatment: Pt exhibiting manic, erratic behavior based on delusional thought content.
[2019-05-21] MEDS: clonazePAM 1mg tablet PO SCH ×2 (07:27→19:03)
[2019-05-21] MEDS: QUEtiapine 25mg tablet PO SCH ×2 (07:28→13:31)
[2019-05-21] MEDS: oxcarbazepine 150mg tablet PO SCH ×2 (07:30→08:00)
[2019-05-21] MEDS ORDERED: clonazePAM 1mg tablet PO ONE (07:45)
[2019-05-21] MEDS ORDERED: oxcarbazepine 150mg tablet PO ONE (07:45)
[2019-05-21 08:00] VITALS: BP 124/87
[2019-05-21] MEDS: NICOTINE POLACRILEX 2 MG LOZENGE BC PRN ×2 (11:23→19:04)
--- NOTE | 2019-05-21 17:01 | NUR ---
Nursing Progress Note: Katarzyna Legal hold: 5250 Client on involuntary status for DTS Report received from Yuli ELIZABETH Why are they here: This admit is a 38 y/o female, admitted directly from [facility] to the unit at 2014. The patient states that she lives with her mom. She claims that she and her mother were having an argument that got out of hand. The patient reportedly was banging her head against a wall and biting herself. She admits to banging her head, but states that she was possessed. The patient was guarded with information, and she seems to experience paranoid delusions, believing that her mother is the Devil. The patient's mom states that the patient hears voices and is talking to them all day. "She screams and yells at them." The patient has not been taking any medications. She has multiple PHF admissions, and has difficulty maintaining a home due to her symptoms. Assessment What has happened this shift: Pt was in her room at change of shift. Pt was in pleasant mood and amicable to medications as well as assessment. Client seems fixated on her Klonopin and continually requests the medication. There have been no behavioral issues as of this writing. Client went to small TV room to watch it with peers. S/I, H/I: Denies A/VH: Denies Sleep: poor ADL's: Independent Group attendance: Were meds taken: Yes Any med S/E: None observed nor reported Mental Status Exam Appearance: Long hair in ponytail, wearing unit green scrubs and nonskid socks Eye contact: Direct Behavior: Resting in room, listening to headphones, talking on the phone Speech: Clear, Normal Rate and Rhythm Mood: Depressed, anxious Affect: Blunted, labile tearful at times. Thought process: Delusional Thought Content: Wanting PRN medications, Delusions Cognition: A&Ox3 (off for event) Insight: Poor Judgment: Poor to fair Interventions PRN's used: Maalox, seroquel, klonopin Therapeutic interventions: AM provided 1:1 assessment with therapeutic communication and active listening; medication administration/education/monitoring, Q 15 minute safety checks. Restraints/seclusion/emergency medication: none Justification of Continued Inpatient Treatment: Pt exhibiting manic, erratic behavior based on delusional thought content.
[2019-05-21] MEDS: quetiapine 100mg tablet PO SCH (19:04)
[2019-05-21] MEDS: ibuprofen 200mg tablet PO PRN (20:08)
[2019-05-21] MEDS ORDERED: clonazePAM 1mg tablet PO PRN (20:45)
[2019-05-21 20:56] VITALS: BP 141/99
[2019-05-22] MEDS: QUEtiapine 25mg tablet PO PRN (02:56)
--- NOTE | 2019-05-22 04:08 | NUR ---
Nursing Progress Note: Katarzyna Legal hold: 5250 Client on involuntary status for DTS Report received from Slava ELIZABETH Why are they here: This admit is a 38 y/o female, admitted directly from [facility] to the unit at 2014. The patient states that she lives with her mom. She claims that she and her mother were having an argument that got out of hand. The patient reportedly was banging her head against a wall and biting herself. She admits to banging her head, but states that she was possessed. The patient was guarded with information, and she seems to experience paranoid delusions, believing that her mother is the Devil. The patient's mom states that the patient hears voices and is talking to them all day. "She screams and yells at them." The patient has not been taking any medications. She has multiple PHF admissions, and has difficulty maintaining a home due to her symptoms. Assessment What has happened this shift: Patient active on the unit at the beginning of shift. Patient pleasant and cooperative. No outbursts this shift. Initiating conversation with peers and staff. No negative comments towards her mother made this shift. No delusional comments of the [employer]ITUS made this shit. Patient did not c/o night terrors this shift and appeared to have rested well. She continues to use pacifier as a coping mechanism. Patient was able to pick out new clothing from the community closet and stated her excitement to try the new clothes. S/I, H/I: Denies A/VH: Denies Sleep: poor ADL's: Independent Group attendance: group room for HS snack Were meds taken: Yes Any med S/E: None observed nor reported Mental Status Exam Appearance: Long hair in ponytail, wearing pajama shorts and t-shirt Eye contact: Direct Behavior: initiating conversation with peers and staff, energetic, smiling Speech: Clear, Normal Rate and Rhythm Mood: anxious Affect: animated Thought process: tangential Thought Content: perseverates on medications Cognition: A&Ox3 (off for event) Insight: Poor Judgment: Poor to fair Interventions PRN's used: quetiapine, clonazepam, Motrin Therapeutic interventions: AM provided 1:1 assessment with therapeutic communication and active listening; medication administration/education/monitoring, Q 15 minute safety checks. Restraints/seclusion/emergency medication: none Justification of Continued Inpatient Treatment: Pt exhibiting manic, erratic behavior based on delusional thought content.
[2019-05-22] MEDS: NICOTINE POLACRILEX 2 MG LOZENGE BC PRN ×2 (06:13→09:38)
[2019-05-22] MEDS: QUEtiapine 25mg tablet PO SCH ×2 (07:36→12:25)
[2019-05-22] MEDS: oxcarbazepine 150mg tablet PO SCH (07:36)
[2019-05-22 08:00] VITALS: BP 139/100
[2019-05-22] MEDS ORDERED: clonazePAM 1mg tablet PO SCH (08:00)
--- NOTE | 2019-05-22 10:14 | NUR ---
DISCHARGE PLANNING: LVM for [facility], awaiting call back
[2019-05-22] MEDS ORDERED: clonazePAM 1mg tablet PO ONE (15:15)
[2019-05-22] MEDS ORDERED: quetiapine 100mg tablet PO ONE (15:15)
[2019-05-22] MEDS ORDERED: diphenhydrAMINE 50 mg/ml inj ONE (17:11)
[2019-05-22] MEDS ORDERED: haloperidol lactate 5mg/ml inj ONE (17:11)
[2019-05-22] MEDS ORDERED: LORazepam 2 mg/ml vial ONE (17:12)
--- NOTE | 2019-05-22 18:01 | NUR ---
seclusion note: Pt escalating, becoming verbally threatening and when security arrived, pt began cursing and threatening and posturing and challenging them, calling them out to fight. Pt walked without hands on to the seclusion room at 1715 and received IM injections without struggling. Pt continued to pace and threaten. Pt calmed at 1750 and one to one face to face completed. Pt released at 1750. Pt given dinner away from peers. Pt calm and cooperative. 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
--- NOTE | 2019-05-22 18:22 | NUR ---
Nursing Progress Note: Legal hold: 5250 Client on involuntary status for DTS Report received from Deneen ELIZABETH Why are they here: This admit is a 38 y/o female, admitted directly from [facility] to the unit at 2014. The patient states that she lives with her mom. She claims that she and her mother were having an argument that got out of hand. The patient reportedly was banging her head against a wall and biting herself. She admits to banging her head, but states that she was possessed. The patient was guarded with information, and she seems to experience paranoid delusions, believing that her mother is the Devil. The patient's mom states that the patient hears voices and is talking to them all day. "She screams and yells at them." The patient has not been taking any medications. She has multiple PHF admissions, and has difficulty maintaining a home due to her symptoms. Assessment What has happened this shift: Patient up in visible on unit. Patient perseverating on getting more medications for anxiety all morning and patient did exhibit paranoid delusional thoughts at times. Patient stated I am an dottie and I metabolize meds quicker patient became more and more psychotic and delusional as the day went on. This afternoon patient was frantic trying to drink some hot chocolate stating Saraphins are like dogs, hell hounds. we must eat chocolate to kill the demons in us theyre coming because I killed the devil patient then was laying on the floor crying because she stated she had lost her clothes. Patient apparently gave up her clothes earlier and said she didnt want them anymore so they were placed back in the donation closet. This lead to the seclusion episode previously charted. S/I, H/I: Denies A/VH: Denies Sleep: poor ADL's: Independent Group attendance: no Were meds taken: Yes Any med S/E: None observed nor reported Mental Status Exam Appearance: Long hair in ponytail, wearing unit green scrubs and nonskid socks Eye contact: Direct Behavior: Resting in room, listening to headphones, talking on the phone Speech: Clear, Normal Rate and Rhythm Mood: Depressed, anxious Affect: Blunted, labile tearful at times. Thought process: Delusional Thought Content: Wanting PRN medications, Delusions Cognition: A&Ox3 delusional to situation Insight: Poor Judgment: Poor to fair Interventions PRN's used: klonopin, seroquel, IM haldol, ativan, benadryl Therapeutic interventions: AM provided 1:1 assessment with therapeutic communication and active listening; medication administration/education/monitoring, Q 15 minute safety checks. Restraints/seclusion/emergency medication: none Justification of Continued Inpatient Treatment: Pt exhibiting manic, erratic behavior based on delusional thought content.
[2019-05-22] MEDS: quetiapine 100mg tablet PO SCH (19:59)
[2019-05-22 20:00] VITALS: BP 126/86
[2019-05-22] MEDS: clonazePAM 1mg tablet PO SCH (20:00)
[2019-05-22] MEDS: propranolol 10mg tablet PO SCH (20:16)
--- NOTE | 2019-05-23 04:30 | NUR ---
Nursing Progress Note: Katarzyna Legal hold: 5250 Client on involuntary status for DTS Report received from Slava ELIZABETH Why are they here: This admit is a 38 y/o female, admitted directly from [facility] to the unit at 2014. The patient states that she lives with her mom. She claims that she and her mother were having an argument that got out of hand. The patient reportedly was banging her head against a wall and biting herself. She admits to banging her head, but states that she was possessed. The patient was guarded with information, and she seems to experience paranoid delusions, believing that her mother is the Devil. The patient's mom states that the patient hears voices and is talking to them all day. "She screams and yells at them." The patient has not been taking any medications. She has multiple PHF admissions, and has difficulty maintaining a home due to her symptoms. Assessment What has happened this shift: Patient asleep in her lizbeth at the beginning of shift. Patient came out of her room for medications and remained pleasant and cooperative. When this nurse asked about the incident prior to shift change she explained she had high anxiety and began acting inappropriately. Patient continued to explain she felt "alone" when she during her high anxiety episode. She vaguely explained she made irrational decisions and was apologetic. Patient continues to express feelings of depression but denies all other symptoms. Patient went back to bed where she has remained since med pass. S/I, H/I: Denies A/VH: Denies Sleep: poor ADL's: Independent Group attendance: no Were meds taken: Yes Any med S/E: None observed nor reported Mental Status Exam Appearance: Long hair in ponytail, wearing pajama shorts and green scrub top Eye contact: Direct Behavior:calm, cooperative Speech: Clear, Normal Rate and Rhythm Mood: tires Affect: minimizing Thought process: tangential Thought Content: apologetic for outburst and inappropriate behavior with previous shift Cognition: A&Ox3 (off for event) Insight: Poor Judgment: Poor to fair Interventions PRN's used: none Therapeutic interventions: AM provided 1:1 assessment with therapeutic communication and active listening; medication administration/education/monitoring, Q 15 minute safety checks. Restraints/seclusion/emergency medication: none Justification of Continued Inpatient Treatment: Pt exhibiting manic, erratic behavior based on delusional thought content.
[2019-05-23] MEDS: propranolol 10mg tablet PO SCH ×3 (07:22→20:07)
[2019-05-23] MEDS: clonazePAM 1mg tablet PO SCH ×3 (07:23→20:07)
[2019-05-23] MEDS: oxcarbazepine 150mg tablet PO SCH (07:23)
[2019-05-23] MEDS: QUEtiapine 25mg tablet PO SCH ×2 (07:23→13:15)
[2019-05-23 08:36] VITALS: BP 113/77
[2019-05-23] MEDS: QUEtiapine 25mg tablet PO PRN ×2 (10:34→16:48)
--- NOTE | 2019-05-23 15:27 | NUR ---
Nursing Progress Note: Katarzyna Legal hold: 5250 Client on involuntary status for DTS Report received from Janie Why are they here: This admit is a 38 y/o female, admitted directly from [facility] to the unit at 2014. The patient states that she lives with her mom. She claims that she and her mother were having an argument that got out of hand. The patient reportedly was banging her head against a wall and biting herself. She admits to banging her head, but states that she was possessed. The patient was guarded with information, and she seems to experience paranoid delusions, believing that her mother is the Devil. The patient's mom states that the patient hears voices and is talking to them all day. "She screams and yells at them." The patient has not been taking any medications. She has multiple PHF admissions, and has difficulty maintaining a home due to her symptoms. Assessment What has happened this shift: Patient was ambulating on unit to begin the shift. No somatic complaints given. She was compliant with am assessment as well as medications. Ambulatory on unit and social with staff as well as peers. Client approached this administrative underwriter and wished to obtain her clothing that she discarded last evening. Client worked well with Tech to resolve problem and was able to secure clothing that was discarded last shift. Impulse control seems to be better than previous encounters. Medicated around 1030 hours today with Seroquel per orders for agitation. Client continues to request PRN medication at frequent intervals and seems to have no basis for request. At times, client will present for a PRN and not have the symptoms present that the medication treats. Client also has made several comments about getting out and, "doing a bunch of opioids and get real fucked up". S/I, H/I: Denies A/VH: Denies Sleep: poor ADL's: Independent Group attendance: Were meds taken: Any med S/E: None observed nor reported Mental Status Exam Appearance: Long hair in ponytail, personal attire Eye contact: Direct Behavior:calm, cooperative Speech: Clear, Normal Rate and Rhythm Mood: tires Affect: minimizing Thought process: tangential Thought Content: apologetic for outburst and inappropriate behavior with previous shift. Cognition: A&Ox3 (off for event) Insight: Poor Judgment: Poor to fair Interventions PRN's used: Therapeutic interventions: AM provided 1:1 assessment with therapeutic communication and active listening; medication administration/education/monitoring, Q 15 minute safety checks. Restraints/seclusion/emergency medication: none Justification of Continued Inpatient Treatment: Pt exhibiting manic, erratic behavior based on delusional thought content.
[2019-05-23] MEDS: NICOTINE POLACRILEX 2 MG LOZENGE BC PRN (17:31)
[2019-05-23 19:57] VITALS: BP 138/93
[2019-05-23] MEDS: quetiapine 100mg tablet PO SCH (20:09)
--- NOTE | 2019-05-24 00:49 | NUR ---
Nursing Progress Note: Katarzyna Legal hold: 5250 Client on involuntary status for DTS Report received from Slava ELIZABETH Why are they here: This admit is a 38 y/o female, admitted directly from [facility] to the unit at 2014. The patient states that she lives with her mom. She claims that she and her mother were having an argument that got out of hand. The patient reportedly was banging her head against a wall and biting herself. She admits to banging her head, but states that she was possessed. The patient was guarded with information, and she seems to experience paranoid delusions, believing that her mother is the Devil. The patient's mom states that the patient hears voices and is talking to them all day. "She screams and yells at them." The patient has not been taking any medications. She has multiple PHF admissions, and has difficulty maintaining a home due to her symptoms. Assessment What has happened this shift: Patient active on the unit at the beginning of shift. She is pleasant and cooperative to care this shift. The patient can be intrusive and attention seeking at times. Such as the patient met staff right at shift change to ask about clothing and she continued to ask until a plan was made to look at clothing with this scenario writer later in the shift but once plans were made she relaxed for a short time and then came up to staff and asked to shave her legs, again when plans were made she remained content and happy once plans were executed. Shortly after medications and shaving the patient went to bed. No outbursts or inappropriate behaviors observed at this time. Patient continues to endorse deprssion and denies SI, HI, A/VH. She continues to make delusional comments. S/I, H/I: Denies A/VH: Denies Sleep: poor ADL's: Independent Group attendance: no Were meds taken: Yes Any med S/E: None observed nor reported Mental Status Exam Appearance: Long hair in ponytail, wearing pajama shorts and top Eye contact: Direct Behavior:pleasant, cooperative, emotionally needy Speech: Clear, Normal Rate and Rhythm Mood: anxious Affect: congruent to mood Thought process: delusional Thought Content: clothing and shaving Cognition: A&Ox3 (off for event) Insight: Poor Judgment: Poor to fair Interventions PRN's used: none Therapeutic interventions: AM provided 1:1 assessment with therapeutic communication and active listening; medication administration/education/monitoring, Q 15 minute safety checks. Restraints/seclusion/emergency medication: none Justification of Continued Inpatient Treatment: Pt exhibiting manic, erratic behavior based on delusional thought content.
[2019-05-24] MEDS: clonazePAM 1mg tablet PO SCH ×3 (07:14→19:15)
[2019-05-24] MEDS: propranolol 10mg tablet PO SCH ×2 (07:15→13:30)
[2019-05-24] MEDS: QUEtiapine 25mg tablet PO SCH ×2 (07:15→13:31)
[2019-05-24] MEDS: oxcarbazepine 150mg tablet PO SCH (07:15)
[2019-05-24] MEDS: NICOTINE POLACRILEX 2 MG LOZENGE BC PRN (08:27)
[2019-05-24 08:45] VITALS: BP 122/90
[2019-05-24] MEDS: QUEtiapine 25mg tablet PO PRN ×2 (10:20→10:21)
--- NOTE | 2019-05-24 10:23 | NUR ---
reassessment: Pt PO 75-100% meals meeting needs. LBM 05/21. No nutrition concerns at this time. Will continue to monitor. Rec: 1. continue regular diet 2. routine bowel care Addendum: 05/24/19 at [address] Amended: Links added.
--- NOTE | 2019-05-24 16:12 | NUR ---
Client has been very needy this shift and has requested medications at frequent intervals this shift. If her needs are not met, client will seek out other staff members to address the same concern. Client has been social on unit with peers and has had one outburst in which she redirected without further incident. Client does appear sedated and her request for more prn Seroquel was denied by this marketing underwriter as it was contraindicated by Pharmacy. Client has been presenting to marketing underwriter every 5 minutes for prn medications and is very difficult to redirect once she is engaged. Client was seen by Hospitalist this afternoon for her 14 day evaluation. During examination, client complained of sever back pain. She was evaluated and no new orders were received for her complaint. Impulse control appears to be an issue for this client.
[2019-05-24] MEDS: mag hydrox/Alum hydrox/simeth 30ml oral suspension PO PRN (17:30)
[2019-05-24] MEDS ORDERED: propranolol 10mg tablet PO ONE (19:00)
[2019-05-24] MEDS: quetiapine 100mg tablet PO SCH (19:16)
[2019-05-24 19:58] VITALS: BP 130/91
--- NOTE | 2019-05-24 22:08 | NUR ---
Nursing Progress Note: Katarzyna Legal hold: 5250 Client on involuntary status for DTS Report received from Slava ELIZABETH Why are they here: This admit is a 38 y/o female, admitted directly from [facility] to the unit at 2014. The patient states that she lives with her mom. She claims that she and her mother were having an argument that got out of hand. The patient reportedly was banging her head against a wall and biting herself. She admits to banging her head, but states that she was possessed. The patient was guarded with information, and she seems to experience paranoid delusions, believing that her mother is the Devil. The patient's mom states that the patient hears voices and is talking to them all day. "She screams and yells at them." The patient has not been taking any medications. She has multiple PHF admissions, and has difficulty maintaining a home due to her symptoms. Assessment What has happened this shift: Pt was in the hallway at change of shift, immediately seeking out her nurse to discuss medications and is requesting prns. Discussed evening medication schedule with patient and she decided she would talk to the doctor tomorrow. Pt interacted with other patient and staff and is somewhat intrusive asking about other patients medications. Pt denies s/i, denies a/vh. She spends the evening listening to the headphones. Pt is asking to get into the clothes closet late onight but she appears to be sedated and was told we can check in the morning, because she is too sleepy. S/I, H/I: Denies A/VH: Denies Sleep: poor ADL's: Independent Group attendance: no Were meds taken: Yes Any med S/E: None observed nor reported Mental Status Exam Appearance: Long hair in ponytail, wearing pajama shorts and top, changes clothing several times Eye contact: Direct Behavior:pleasant, cooperative, intrusive Speech: Clear, Normal Rate and Rhythm Mood: anxious, depressed Affect: congruent to mood Thought process: delusional Thought Content: clothing and shaving Cognition: A&Ox3 (off for event) Insight: Poor Judgment: Poor to fair Interventions PRN's used: none Therapeutic interventions: AM provided 1:1 assessment with therapeutic communication and active listening; medication administration/education/monitoring, Q 15 minute safety checks. Restraints/seclusion/emergency medication: none Justification of Continued Inpatient Treatment: Pt exhibiting manic, erratic behavior based on delusional thought content.
[2019-05-25] MEDS: QUEtiapine 25mg tablet PO PRN ×3 (02:57→20:02)
[2019-05-25] MEDS: clonazePAM 1mg tablet PO SCH ×3 (07:01→18:27)
[2019-05-25] MEDS: QUEtiapine 25mg tablet PO SCH ×2 (07:01→12:45)
[2019-05-25] MEDS: propranolol 10mg tablet PO SCH ×2 (07:01→12:43)
[2019-05-25 08:00] VITALS: BP 124/72
[2019-05-25] MEDS: oxcarbazepine 150mg tablet PO SCH (08:54)
[2019-05-25] MEDS: NICOTINE POLACRILEX 2 MG LOZENGE BC PRN ×2 (15:53→20:02)
--- NOTE | 2019-05-25 17:10 | NUR ---
Nursing Progress Note: Legal hold: 5250 Client on involuntary status for DTS Report received from assembler 1st shift RN Why are they here: This admit is a 38 y/o female, admitted directly from [facility] to the unit at 2014. The patient states that she lives with her mom. She claims that she and her mother were having an argument that got out of hand. The patient reportedly was banging her head against a wall and biting herself. She admits to banging her head, but states that she was possessed. The patient was guarded with information, and she seems to experience paranoid delusions, believing that her mother is the Devil. The patient's mom states that the patient hears voices and is talking to them all day. "She screams and yells at them." The patient has not been taking any medications. She has multiple PHF admissions, and has difficulty maintaining a home due to her symptoms. Assessment What has happened this shift: Patient up in visible on the unit. Patients mother came this morning and brought her some make up which was checked through by the tech and the director and patient was allowed to keep certain items in her room. Patient applied a lot of make up and glitter to her eyelids. The make up was not climb like, but over the top for the situation. More like make up for a night club. Patient also put her hair into ponytails and was wearing a dress. Patient did state to the staff member, my libido is all messed up, on the show the lady who plays me on the show, just have sex with people, but I take care of myself patient also is very manipulative and during group she stated she felt sick and wanted to lie on her bed but said she needed the radio to help her relax. Patient also continuing to perseverate and getting different clothing items from the donation closet. S/I, H/I: Denies A/VH: Denies Sleep: poor ADL's: Independent Group attendance: no Were meds taken: Any med S/E: None observed nor reported Mental Status Exam Appearance: Long hair in ponytail, personal attire Eye contact: Direct Behavior:calm, cooperative Speech: Clear, Normal Rate and Rhythm Mood: tires Affect: minimizing Thought process: tangential Thought Content: apologetic for outburst and inappropriate behavior with previous shift. Cognition: A&Ox3 (off for event) Insight: Poor Judgment: Poor to fair Interventions PRN's used: Therapeutic interventions: AM provided 1:1 assessment with therapeutic communication and active listening; medication administration/education/monitoring, Q 15 minute safety checks. Restraints/seclusion/emergency medication: none Justification of Continued Inpatient Treatment: Pt exhibiting manic, erratic behavior based on delusional thought content.
[2019-05-25] MEDS: quetiapine 100mg tablet PO SCH (18:27)
[2019-05-25 20:31] VITALS: BP 133/93
--- NOTE | 2019-05-25 21:07 | NUR ---
Nursing Progress Note: Legal hold: 5250 Client on involuntary status for DTS Report received from Slava HERNANDEZ Why are they here: This admit is a 38 y/o female, admitted directly from [facility] to the unit at 2014. The patient states that she lives with her mom. She claims that she and her mother were having an argument that got out of hand. The patient reportedly was banging her head against a wall and biting herself. She admits to banging her head, but states that she was possessed. The patient was guarded with information, and she seems to experience paranoid delusions, believing that her mother is the Devil. The patient's mom states that the patient hears voices and is talking to them all day. "She screams and yells at them." The patient has not been taking any medications. She has multiple PHF admissions, and has difficulty maintaining a home due to her symptoms. Assessment What has happened this shift: Pt was in the hallway at change of shift. Pt was smiling and happy, showing me her glitter eye shadow, and she had her hair done nicely. She was waiting for her mother to come visit and she stated that she was expecting her to bring her clothing. Pts mother did not show up and patient became very upset. Pt began c/o her mother telling her she was not her mother anymore, and stealing her little pony collection. She complained "My mother just wants to keep my things for herself." Pt requested prn of seroquel and I suggested she attempt using a coping skill first. Pt attempted to listen to music but remained upset. She stated "My coping skill isnt working and I just need my meds." pt was given PRN. She then continues to be upset and had an outburst and began yelling because there wasnt a sandwich left in the snack tray and she began arguing w/a patient career based intervention coordinator over getting a sandwich. Provided patient with a sandwich and she was allowed to sit alone in her room and calm herself. Pt spent time listening to music before she went to bed. S/I, H/I: Denies A/VH: Denies Sleep: poor ADL's: Independent Group attendance: no Were meds taken:yes Any med S/E: None observed nor reported Mental Status Exam Appearance: Clean, adequately groomed and dressed in personal attire Eye contact: Direct Behavior: intrusive, agitated Speech: Clear, Normal Rate and Rhythm Mood: anxious, depressed Affect: Labile Thought process: tangential Thought Content: perseverates on having clothing for discharge to the [facility], wants clothing from the clothes closet, gets upset about her mom not providing clothes. Cognition: A&Ox3 (off for event) Insight: Poor Judgment: Poor to fair Interventions PRN's used: Therapeutic interventions: AM provided 1:1 assessment with therapeutic communication and active listening; medication administration/education/monitoring, Q 15 minute safety checks. Restraints/seclusion/emergency medication: none Justification of Continued Inpatient Treatment: Pt exhibiting manic, erratic behavior based on delusional thought content. Addendum: 05/26/19 at 0130 by Janet Tavares RN Pt wakes often during the night requesting snacks, asking for headphones or to charge the headphones. She appears very sedated each time she comes to the nursing station and is redirected back to bed.
[2019-05-26] MEDS: QUEtiapine 25mg tablet PO SCH ×2 (07:23→12:54)
[2019-05-26] MEDS: propranolol 10mg tablet PO SCH ×2 (07:23→12:53)
[2019-05-26] MEDS: clonazePAM 1mg tablet PO SCH ×3 (07:23→19:03)
[2019-05-26] MEDS: oxcarbazepine 150mg tablet PO SCH ×2 (07:23→19:03)
[2019-05-26 08:33] VITALS: BP 121/90
[2019-05-26] MEDS: QUEtiapine 25mg tablet PO PRN ×2 (10:20→23:13)
--- NOTE | 2019-05-26 16:52 | NUR ---
Nursing Progress Note: Legal hold: 5250 Client on involuntary status for DTS Report received from shift supervisor rn RN Why are they here: This admit is a 38 y/o female, admitted directly from [facility] to the unit at 2014. The patient states that she lives with her mom. She claims that she and her mother were having an argument that got out of hand. The patient reportedly was banging her head against a wall and biting herself. She admits to banging her head, but states that she was possessed. The patient was guarded with information, and she seems to experience paranoid delusions, believing that her mother is the Devil. The patient's mom states that the patient hears voices and is talking to them all day. "She screams and yells at them." The patient has not been taking any medications. She has multiple PHF admissions, and has difficulty maintaining a home due to her symptoms. Assessment What has happened this shift: Patient up in visible on the unit. Pt again has excessive makeup on including glitter. It is more appropriate for a nightclub. Pt is calmer, but continues to exhibit hypomania: hyperverbal with pressured speech at times, restorationist and grandiose thoughts, Im an dottie sent by God. Im his coin Pt denies suicidal thoughts and denies auditory hallucinations. At one point another pt was screaming in her room and this pt sat outside the room and was antagonizing her. Pt compliant with redirection. Pt did request PRN for anxiety today and received 100mg of seroquel which did calm her down. S/I, H/I: Denies A/VH: Denies Sleep: poor ADL's: Independent Group attendance: no Were meds taken: Any med S/E: None observed nor reported Mental Status Exam Appearance: Long hair in ponytail, personal attire Eye contact: Direct Behavior:calm, cooperative Speech: Clear, Normal Rate and Rhythm Mood: tires Affect: minimizing Thought process: tangential Thought Content: apologetic for outburst and inappropriate behavior with previous shift. Cognition: A&Ox3 Insight: Poor Judgment: Poor to fair Interventions PRN's used: seroquel Therapeutic interventions: AM provided 1:1 assessment with therapeutic communication and active listening; medication administration/education/monitoring, Q 15 minute safety checks. Restraints/seclusion/emergency medication: none Justification of Continued Inpatient Treatment: Pt exhibiting manic, erratic behavior based on delusional thought content.
[2019-05-26] MEDS: quetiapine 100mg tablet PO SCH (19:04)
[2019-05-26 19:27] VITALS: BP 124/90
--- NOTE | 2019-05-26 23:24 | NUR ---
Nursing Progress Note: Legal hold: 5250 Client on involuntary status for DTS Report received from Jamaal HERNANDEZ Why are they here: This admit is a 38 y/o female, admitted directly from [facility] to the unit at 2014. The patient states that she lives with her mom. She claims that she and her mother were having an argument that got out of hand. The patient reportedly was banging her head against a wall and biting herself. She admits to banging her head, but states that she was possessed. The patient was guarded with information, and she seems to experience paranoid delusions, believing that her mother is the Devil. The patient's mom states that the patient hears voices and is talking to them all day. "She screams and yells at them." The patient has not been taking any medications. She has multiple PHF admissions, and has difficulty maintaining a home due to her symptoms. Assessment What has happened this shift: Pt was in the hallway at change of shift talking about her medication changes and her mother coming to visit. Pt asks for evening meds saying "I want to be sedated, I've been sedated since I was a kid and sedated is how I feel my best." Educated patient on when it's appropriate to take a prn and what the prn is for. pt states "I know, I know, agitation is the same as anxiety and I'm having anxiety so I need a prn." Pt is asking for prn seroquel. Explained to pt she has scheduled meds including seroquel dose she can take first before prns and pt agrees. Pt denies s/i, denies a/vh. Pt spent evening visiting w/her mother and was happy to get some more clothing from her mother. Pt continued to ask for prn even when given scheduled medications. Pt was encouraged to use coping skills and she did attempt to go to bed and sleep but then got up asking for her prn again. Pt was encouraged once again to use coping skills and she replied "Stop trying to act like a doctor and tell me about medicine, I know its for anxiety and I have anxiety now." pt was given prn and went back to bed and then returned to the nursing station shortly after asking for a nicotine lozenge stating she cant sleep. Pt was directed to try and sleep and she returned to her room. S/I, H/I: Denies A/VH: Denies Sleep: poor ADL's: Independent Group attendance: no Were meds taken: yes Any med S/E: None observed nor reported Mental Status Exam Appearance: Long hair in ponytail, personal attire Eye contact: Direct Behavior: calm cooperative, but becomes agitated easily with other patients. Speech: Clear, Normal Rate and Rhythm Mood: labile Affect: minimizing Thought process: tangential, grandiose Thought Content: "I can see things you can't see, I know you're a god, but I had to take your soul and you will see why at another time." Cognition: A&Ox3 Insight: Poor Judgment: Poor to fair Interventions PRN's used: seroquel Therapeutic interventions: AM provided 1:1 assessment with therapeutic communication and active listening; medication administration/education/monitoring, Q 15 minute safety checks. Restraints/seclusion/emergency medication: none Justification of Continued Inpatient Treatment: Pt exhibiting manic, erratic behavior based on delusional thought content.
[2019-05-27 07:51] VITALS: BP 118/85
[2019-05-27] MEDS: propranolol 10mg tablet PO SCH ×3 (07:59→19:11)
[2019-05-27] MEDS: QUEtiapine 25mg tablet PO SCH ×2 (07:59→13:07)
[2019-05-27] MEDS: oxcarbazepine 150mg tablet PO SCH ×2 (08:00→19:11)
[2019-05-27] MEDS: clonazePAM 1mg tablet PO SCH ×3 (08:00→19:11)
[2019-05-27] MEDS: QUEtiapine 25mg tablet PO PRN ×2 (10:10→20:55)
--- NOTE | 2019-05-27 15:52 | NUR ---
Nursing Progress Note: Katarzyna Legal hold: 5250 Client on involuntary status for DTS Report received Yuli ELIZABETH Why are they here: This admit is a 38 y/o female, admitted directly from [facility] to the unit at 2014. The patient states that she lives with her mom. She claims that she and her mother were having an argument that got out of hand. The patient reportedly was banging her head against a wall and biting herself. She admits to banging her head, but states that she was possessed. The patient was guarded with information, and she seems to experience paranoid delusions, believing that her mother is the Devil. The patient's mom states that the patient hears voices and is talking to them all day. "She screams and yells at them." The patient has not been taking any medications. She has multiple PHF admissions, and has difficulty maintaining a home due to her symptoms. Assessment: What has happened this shift: Pt was in the hallway at change of shift. Client engaged auto service writer and she explained that she was, ", and I need new clothes from downstairs". Client was also overheard this am telling her Mom via phone that she was, " with my baby". Client also engaged the reservation sales agent of the unit and explained to him that, "I am and it happened many years ago". Client will redirect but only for a while until she can engage another staff member in conversation. Client is fixated on clothing and requests several times an hour to, "find clothes that fit me, I am ". Client was disruptive in group today and was removed. Client also initiated a conflict with another peer that required several staff members to manage client's escalating behaviors. Client has been able to control her behaviors this afternoon but continues to seek Seroquel and Ativan at frequent intervals. S/I, H/I: Denies A/VH: Denies Sleep: poor ADL's: Independent Group attendance: Were meds taken: yes Any med S/E: None observed nor reported Mental Status Exam Appearance: Long hair in ponytail, personal attire Eye contact: Direct Behavior: calm cooperative, but becomes agitated easily with other patients. Speech: Clear, Normal Rate and Rhythm Mood: labile Affect: minimizing Thought process: tangential, grandiose Thought Content: "I can see things you can't see, I know you're a god, but I had to take your soul and you will see why at another time." Cognition: A&Ox3 Insight: Poor Judgment: Poor to fair Interventions PRN's used: Therapeutic interventions: AM provided 1:1 assessment with therapeutic communication and active listening; medication administration/education/monitoring, Q 15 minute safety checks. Restraints/seclusion/emergency medication: none Justification of Continued Inpatient Treatment: Pt exhibiting manic, erratic behavior based on delusional thought content.
[2019-05-27] MEDS: quetiapine 100mg tablet PO SCH (19:11)
[2019-05-27 20:10] VITALS: BP 110/87
--- NOTE | 2019-05-27 23:28 | NUR ---
Nursing Progress Note: Legal hold: 5250 Client on involuntary status for DTS Report received from day RN Why are they here: This admit is a 38 y/o female, admitted directly from [facility] to the unit at 2014. The patient states that she lives with her mom. She claims that she and her mother were having an argument that got out of hand. The patient reportedly was banging her head against a wall and biting herself. She admits to banging her head, but states that she was possessed. The patient was guarded with information, and she seems to experience paranoid delusions, believing that her mother is the Devil. The patient's mom states that the patient hears voices and is talking to them all day. "She screams and yells at them." The patient has not been taking any medications. She has multiple PHF admissions, and has difficulty maintaining a home due to her symptoms. Assessment What has happened this shift: Pt up and visible on the unit at start of shift. Pt hyperverbal with pressured speech and delusional thought content when talking to this RN. Pt going on and on r/t different bizarre theological philosophies she has like any person needs to get before to "inherrit the kingdom of God" Pt becomes upset (angry and tearful) when she feels this RN doesn't believe her thoughts. Pt has excessive makeup and was happy when a pair of pants were found that fit her. Pt requested and received PRN seroquel around 2100. Pt asleep at 2130 but up at 2245 requesting a snack and more medications. Staff declined both requests and after trying twice to request, pt returned to sleep. S/I, H/I: Denies A/VH: Denies Sleep: ADL's: Independent Group attendance: n/a Were meds taken: yes Any med S/E: None observed nor reported Mental Status Exam Appearance: excessive makeup Eye contact: Direct Behavior: calm cooperative, but becomes agitated easily with other patients. Speech: Clear, Normal Rate and Rhythm Mood: labile Affect: minimizing Thought process: tangential, grandiose Thought Content: religiously preoccupied Cognition: A&Ox3 Insight: Poor Judgment: Poor to fair Interventions PRN's used: seroquel Therapeutic interventions: AM provided 1:1 assessment with therapeutic communication and active listening; medication administration/education/monitoring, Q 15 minute safety checks. Restraints/seclusion/emergency medication: none Justification of Continued Inpatient Treatment: Pt exhibiting manic, erratic behavior based on delusional thought content.
[2019-05-28] MEDS: QUEtiapine 25mg tablet PO PRN ×2 (05:02→11:37)
[2019-05-28 07:09] VITALS: BP 122/87
[2019-05-28] MEDS: propranolol 10mg tablet PO SCH ×3 (07:12→19:00)
[2019-05-28] MEDS: oxcarbazepine 150mg tablet PO SCH ×2 (07:13→20:00)
[2019-05-28] MEDS: QUEtiapine 25mg tablet PO SCH (07:13)
[2019-05-28] MEDS: clonazePAM 1mg tablet PO SCH ×3 (07:13→21:00)
[2019-05-28 08:00] VITALS: BP 122/87
[2019-05-28 12:53] VITALS: BP 124/77
[2019-05-28] MEDS ORDERED: quetiapine 100mg tablet PO PRN (13:05)
[2019-05-28] MEDS ORDERED: quetiapine 100mg tablet PO ONE (13:05)
--- NOTE | 2019-05-28 18:23 | NUR ---
Nursing Progress Note: Legal hold: 5250 Client on involuntary status for DTS Report received from CLARA Roldan Why are they here: This admit is a 38 y/o female, admitted directly from [facility] to the unit at 2014. The patient states that she lives with her mom. She claims that she and her mother were having an argument that got out of hand. The patient reportedly was banging her head against a wall and biting herself. She admits to banging her head, but states that she was possessed. The patient was guarded with information, and she seems to experience paranoid delusions, believing that her mother is the Devil. The patient's mom states that the patient hears voices and is talking to them all day. "She screams and yells at them." The patient has not been taking any medications. She has multiple PHF admissions, and has difficulty maintaining a home due to her symptoms. Assessment What has happened this shift: Pt was up in her room at the change of shift. She was up around the unit throughout the day. Pt stated she feels crappy. She indicated she had no problem going to sleep, but kept waking up during the night. She reports having depression, a little anxiety, and denies SI. When asked about hallucinations she stated, "I don't believe in hallucinations, spiritual realm is good - God, the bad is the devil." She has delusions saying, "Sin eater is one of my khanna." The pt perseverated about getting different clothes from the donation closet. She also wanted the dosage of her Seroquel changed to three even doses throughout the day. Pt was labile and argued with other pt's in the group room. She had to be redirected to control her language. During the afternoon, the pt walked in the hallway with a pacifier in her mouth. S/I, H/I: Denies A/VH: Denies Sleep: Frequent awakenings during the night ADL's: Independent Group attendance: No Were meds taken: Yes Any med S/E: None observed nor reported Mental Status Exam Appearance: Long hair in ponytail, street clothes Eye contact: Direct Behavior:cooperative, but labile at times Speech: Normal rate and rhythm Mood: Labile Affect: Labile Thought process: Obsessive Thought Content: Perseverated about getting her Seroquel dosage changed. Cognition: A&Ox3 (off for event) Insight: Poor Judgment: Poor Interventions PRN's used: Seroquel Therapeutic interventions: AM provided 1:1 assessment with therapeutic communication and active listening; medication administration/education/monitoring, provide redirection for inappropriate behaviors, Q 15 minute safety checks. Restraints/seclusion/emergency medication: none Justification of Continued Inpatient Treatment: Pt exhibiting manic, erratic behavior based on delusional thought content. Continued therapeutic support and medication management needed to provide stabilization, prevent decompensation, decreasing risk to patient and readmittance.
[2019-05-28] MEDS: quetiapine 100mg tablet PO SCH (19:00)
[2019-05-28 20:00] VITALS: BP 133/93
[2019-05-28] MEDS ORDERED: haloperidol lactate 5mg/ml inj ONE (20:05)
[2019-05-28] MEDS ORDERED: LORazepam 2 mg/ml vial IM ONE (20:05)
[2019-05-28] MEDS ORDERED: haloperidol lactate 5mg/ml inj IM ONE (20:05)
[2019-05-28] MEDS ORDERED: diphenhydrAMINE 50 mg/ml inj ONE (20:05)
[2019-05-28] MEDS ORDERED: diphenhydrAMINE 50 mg/ml inj IM ONE (20:05)
[2019-05-28] MEDS ORDERED: LORazepam 2 mg/ml vial ONE (20:06)
--- NOTE | 2019-05-29 03:57 | NUR ---
Nursing Progress Note: Legal hold: 5250 Client on involuntary status for DTS Report received from CLARA Villela Why are they here: This admit is a 38 y/o female, admitted directly from [facility] to the unit at 2014. The patient states that she lives with her mom. She claims that she and her mother were having an argument that got out of hand. The patient reportedly was banging her head against a wall and biting herself. She admits to banging her head, but states that she was possessed. The patient was guarded with information, and she seems to experience paranoid delusions, believing that her mother is the Devil. The patient's mom states that the patient hears voices and is talking to them all day. "She screams and yells at them." The patient has not been taking any medications. She has multiple PHF admissions, and has difficulty maintaining a home due to her symptoms. Assessment What has happened this shift: Pt was up in her room sitting on the floor at change of shift. Patient agitated with the misunderstanding with her medication changes. Patient believed there to be a great change with her quetiapine and clonazepam, Doctor Artur visited with the patient to clarify minimal changes but patient unable to redirect. Patient demanding that she receive her last dose of clonazepam at 1900 with the rest of her medication and after talking with the doctor scheduled times were not to be changed at this time. Patient then refusing to take her medications and threatening to [facility] staff and hospital, stating we are causing her to harm herself. Patient was asked to lower her voice while in the hardin by staff and patient replied, "if you were not in that room I'd go over and punch you in the face." Patient then asked by her nurse and CRN to go sit in her room. Patient accompanied at distance while patient continued to walk down the hardin insulting staff members. After speaking with the doctor the patient received B52 (Ativan 2mg, Haldol 10mg and Benadryl 50mg). Patient went to bed shortly. No further behaviors at this time. S/I, H/I: Denies A/VH: Denies Sleep: Asleep at this time, refer to sleep assessment ADL's: Independent Group attendance: No Were meds taken: No Any med S/E: None observed nor reported Mental Status Exam Appearance: Disheveled, eyeliner smeared, long hair pulled back, street clothes Eye contact: Direct Behavior: Labile, resistive to care Speech: Normal rate and rhythm Mood: Labile Affect: congruent to mood Thought process: Obsessive Thought Content: Perseverated about getting her Seroquel dosage changed. Cognition: A&Ox3 (off for event) Insight: Poor Judgment: Poor Interventions PRN's used: Ativan 2mg, Haldol 10mg, Benadryl 50mg Therapeutic interventions: AM provided 1:1 assessment with therapeutic communication and active listening; medication administration/education/monitoring, provide redirection for inappropriate behaviors, Q 15 minute safety checks. Restraints/seclusion/emergency medication: emergency medication- B52 Justification of Continued Inpatient Treatment: Pt exhibiting manic, erratic behavior based on delusional thought content. Continued therapeutic support and medication management needed to provide stabilization, prevent decompensation, decreasing risk to patient and readmittance.
[2019-05-29] MEDS: clonazePAM 1mg tablet PO SCH ×4 (05:15→20:01)
[2019-05-29 07:36] VITALS: BP 120/83
[2019-05-29] MEDS: propranolol 10mg tablet PO SCH ×3 (07:38→19:04)
[2019-05-29] MEDS: quetiapine 100mg tablet PO SCH ×3 (07:39→19:04)
[2019-05-29] MEDS: oxcarbazepine 150mg tablet PO SCH ×3 (07:39→20:01)
--- NOTE | 2019-05-29 11:28 | NUR ---
Called [facility] office to inquire about [facility] referral. Quang reported Ct has been accepted however, they do not do admits on Fri. Informed her that Ct may not be appropriate for [facility]. Called Tawanda and left a message (ph# [phone]) asking him to return health underwriter's call to discuss Ct's referral. ISIAH Mar Lic # [id number]
[2019-05-29 12:51] VITALS: BP 127/88
[2019-05-29] MEDS: quetiapine 100mg tablet PO PRN (14:09)
--- NOTE | 2019-05-29 18:24 | NUR ---
Nursing Progress Note: Legal hold: Converted to voluntary Client on voluntary status for DTS Report received from CLARA Lima Why are they here: This admit is a 38 y/o female, admitted directly from [facility] to the unit at 2014. The patient states that she lives with her mom. She claims that she and her mother were having an argument that got out of hand. The patient reportedly was banging her head against a wall and biting herself. She admits to banging her head, but states that she was possessed. The patient was guarded with information, and she seems to experience paranoid delusions, believing that her mother is the Devil. The patient's mom states that the patient hears voices and is talking to them all day. "She screams and yells at them." The patient has not been taking any medications. She has multiple PHF admissions, and has difficulty maintaining a home due to her symptoms. Assessment What has happened this shift: Pt was sleeping at change of shift. She was compliant with medication administration and cooperative with assessment. She talked about her behavior last night that resulted in her receiving a B52. She indicated she didn't know what happened and she thinks a demon attacked her. She denies depression and SI. She says she does not believe in hallucinations she thinks they are the spiritual world. She reports anxiety. She stated she would act out to get the medications she received last night. At lunch, she was redirected not to ask other patients for the food off their trays. Pt signed in as a voluntary pt. S/I, H/I: Denies A/VH: Denies Sleep: no sleep during the day ADL's: Independent Group attendance: No Were meds taken: Yes Any med S/E: None observed nor reported Mental Status Exam Appearance: Street clothes, eye shadow with glitter Eye contact: Direct Behavior:cooperative, but labile at times Speech: Normal rate and rhythm Mood: Labile Affect: Labile Thought process: Perseverative Thought Content: Wanted her medications as soon as possible Cognition: A&Ox3 (off for event) Insight: Poor Judgment: Poor Interventions PRN's used: Seroquel Therapeutic interventions: AM provided 1:1 assessment with therapeutic communication and active listening; medication administration/education/monitoring, provide redirection for inappropriate behaviors, Q 15 minute safety checks. Restraints/seclusion/emergency medication: none Justification of Continued Inpatient Treatment: Pt exhibiting manic, erratic behavior based on delusional thought content. Continued therapeutic support and medication management needed to provide stabilization, prevent decompensation, decreasing risk to patient and readmittance.
[2019-05-29 19:00] VITALS: BP 144/88
--- NOTE | 2019-05-30 04:31 | NUR ---
Nursing Progress Note: Legal hold: Voluntary Client on involuntary status for DTS Report received from CLARA Villela Why are they here: This admit is a 38 y/o female, admitted directly from [facility] to the unit at 2014. The patient states that she lives with her mom. She claims that she and her mother were having an argument that got out of hand. The patient reportedly was banging her head against a wall and biting herself. She admits to banging her head, but states that she was possessed. The patient was guarded with information, and she seems to experience paranoid delusions, believing that her mother is the Devil. The patient's mom states that the patient hears voices and is talking to them all day. "She screams and yells at them." The patient has not been taking any medications. She has multiple PHF admissions, and has difficulty maintaining a home due to her symptoms. Assessment What has happened this shift: Patient visible on the unit at the beginning of the shift. Appeared emotionally needy as she went from needing her medication early to an early snack and when boundaries enforced she states, "my nurse doesn't care about me." Patient remained compliant with medications and reluctantly cooperated with boundaries set such as wait for scheduled times for her medication and eating snack at the same time as her peers. Patient continues to use her pacifier. Patient unhappy with not having PRN Ativan, however, was redirected with nicotine lozenge. No outbursts at this time. Denies SI, HI, A/VH. Patient expressed clear understanding of voluntary status. S/I, H/I: Denies A/VH: Denies Sleep: Asleep at this time, refer to sleep assessment ADL's: Independent Group attendance: No Were meds taken: Yes Any med S/E: None observed nor reported Mental Status Exam Appearance: Disheveled, dressed in the same sweatpants and T-shirt as previous night. Eye contact: Direct Behavior: Labile Speech: Normal rate and rhythm Mood: Labile Affect: congruent to mood Thought process: Obsessive Thought Content: wanting PRN Ativan Cognition: A&Ox3 (off for event) Insight: Poor Judgment: Poor Interventions PRN's used: Nicotine lozenge Therapeutic interventions: AM provided 1:1 assessment with therapeutic communication and active listening; medication administration/education/monitoring, provide redirection for inappropriate behaviors, Q 15 minute safety checks. Restraints/seclusion/emergency medication: emergency medication- B52 Justification of Continued Inpatient Treatment: Pt exhibiting manic, erratic behavior based on delusional thought content. Continued therapeutic support and medication management needed to provide stabilization, prevent decompensation, decreasing risk to patient and readmittance. Addendum: 05/30/19 at 0444 by Yessi Jones RN Restraints/seclusion/emergency medication: none.
[2019-05-30] MEDS: clonazePAM 1mg tablet PO SCH ×4 (05:53→20:13)
[2019-05-30] MEDS: quetiapine 100mg tablet PO SCH ×3 (07:02→20:13)
[2019-05-30] MEDS: oxcarbazepine 150mg tablet PO SCH ×2 (07:03→20:13)
[2019-05-30] MEDS: propranolol 10mg tablet PO SCH ×3 (07:03→20:13)
[2019-05-30 07:46] VITALS: BP 132/87
--- NOTE | 2019-05-30 08:41 | NUR ---
reassessment: Pt PO 75-100% meals meeting needs. LBM 05/29. No nutrition concerns at this time. Will continue to monitor. Rec: 1. continue regular diet 2. routine bowel care Addendum: 05/30/19 at [address] Amended: Links added.
[2019-05-30] MEDS: quetiapine 100mg tablet PO PRN (10:25)
--- NOTE | 2019-05-30 15:11 | NUR ---
Nursing Progress Note: Legal hold: Voluntary Client on involuntary status for DTS Report received from CLARA Bartlett Why are they here: This admit is a 38 y/o female, admitted directly from [facility] to the unit at 2014. The patient states that she lives with her mom. She claims that she and her mother were having an argument that got out of hand. The patient reportedly was banging her head against a wall and biting herself. She admits to banging her head, but states that she was possessed. The patient was guarded with information, and she seems to experience paranoid delusions, believing that her mother is the Devil. The patient's mom states that the patient hears voices and is talking to them all day. "She screams and yells at them." The patient has not been taking any medications. She has multiple PHF admissions, and has difficulty maintaining a home due to her symptoms. Assessment What has happened this shift: Patient approached this fha underwriter in the hardin immediately after arriving on the floor, and before receiving report. She was asking about her meds and a shower. Accepted explanation that she needed to wait until after change of shift and completion of AM routines of staff. Met with patient at approximately 0645 and discussed medication administration for the entire shift. Patient agreed with schedule and remained compliant with some redirection required. Patient states she is , when explained that her meds are harmful to unborn babies, she states that "as long as no one knows, God will protect the baby from any harm". This fha underwriter did verify negative HCG from previous facility. Continues to talk about Gods, Demons, and quotes from the bible appropriately then leads into vampires and witches. "vampires are day walkers, they were cursed, not by God, but if they repented they were allowed to walk during the day." "they don't need blood anymore, because they can make synthetic blood". "Did you know that they can make anything we need from baby stem cells?". Experienced one short outburst, was able to control level and walked to her room. Became very focused on medication stating that "Dr. Benavides is supposed to adjust my meds". She also stated "I think if I train Dr. Benavides to be a god, he will help me with my meds". S/I, H/I: Denies A/VH: Denies (demonstrates significant delusions) Sleep: 6.75 ADL's: Independent Group attendance: No Were meds taken: Yes Any med S/E: None observed nor reported Mental Status Exam Appearance: Hair combed back into a pony tail, wearing maxidress Eye contact: Direct Behavior: Labile Speech: Normal rate and rhythm Mood: Labile Affect: congruent to mood Thought process: Obsessive Thought Content: medication regimen, God's, Demons Cognition: A&Ox3 (off for event) Insight: Poor Judgment: Poor Interventions PRN's used: Serequel Therapeutic interventions: AM provided 1:1 assessment with therapeutic communication and active listening; medication administration/education/monitoring, provide redirection for inappropriate behaviors, Q 15 minute safety checks. Restraints/seclusion/emergency medication: emergency medication Justification of Continued Inpatient Treatment: Pt exhibiting manic, erratic behavior based on delusional thought content. Continued therapeutic support and medication management needed to provide stabilization, prevent decompensation, decreasing risk to patient and readmittance. Restraints/seclusion/emergency medication: none.
[2019-05-30] MEDS: NICOTINE POLACRILEX 2 MG LOZENGE BC PRN (16:09)
[2019-05-30 19:00] VITALS: BP 142/95
--- NOTE | 2019-05-30 22:21 | NUR ---
Nursing Progress Note: Legal hold: Voluntary Client on involuntary status for DTS Report received from CLARA Villela Why are they here: This admit is a 38 y/o female, admitted directly from [facility] to the unit at 2014. The patient states that she lives with her mom. She claims that she and her mother were having an argument that got out of hand. The patient reportedly was banging her head against a wall and biting herself. She admits to banging her head, but states that she was possessed. The patient was guarded with information, and she seems to experience paranoid delusions, believing that her mother is the Devil. The patient's mom states that the patient hears voices and is talking to them all day. "She screams and yells at them." The patient has not been taking any medications. She has multiple PHF admissions, and has difficulty maintaining a home due to her symptoms. Assessment What has happened this shift: Patient visible on the unit at the beginning of the shift. Continues to perseverates on the times medications to be administered. Patient Pleasant and cooperative with all care at this time. She is invasive to personal space. Patient c/o hunger but cooperative with boundaries and waited for HS snack with peers. This automobile and property underwriter spoke with the patient of possibility of going to [facility] for care; patient remained open to the idea but stated she doesn't want to stop her clonazepam and prefer going to the [facility]. Patient showered and clean. No outbursts or attention seeking behaviors at this time. Patient laid down shortly after snack. S/I, H/I: Denies A/VH: Denies Sleep: Asleep at this time, refer to sleep assessment ADL's: Independent Group attendance: No groups this shift Were meds taken: Yes Any med S/E: None observed nor reported Mental Status Exam Appearance: Neat, clean, dressed appropriately Eye contact: Direct Behavior: Pleasant and cooperative, interacting appropriately, invasive to personal space when talking Speech: Normal rate and rhythm Mood: Depressed Affect: Animated Thought process: Obsessive, perseverating on medication times Thought Content: medication administration times Cognition: A&Ox3 (off for event) Insight: Poor Judgment: Poor Interventions PRN's used: None at this time Therapeutic interventions: AM provided 1:1 assessment with therapeutic communication and active listening; medication administration/education/monitoring, provide redirection for inappropriate behaviors, Q 15 minute safety checks. Restraints/seclusion/emergency medication: none Justification of Continued Inpatient Treatment: Pt exhibiting manic, erratic behavior based on delusional thought content. Continued therapeutic support and medication management needed to provide stabilization, prevent decompensation, decreasing risk to patient and readmittance.
[2019-05-31] MEDS: clonazePAM 1mg tablet PO SCH ×3 (07:10→20:10)
[2019-05-31] MEDS: quetiapine 100mg tablet PO SCH ×3 (07:10→20:10)
[2019-05-31] MEDS: oxcarbazepine 150mg tablet PO SCH ×2 (07:10→20:10)
[2019-05-31] MEDS: propranolol 10mg tablet PO SCH ×3 (07:10→20:10)
[2019-05-31] MEDS: magnesium hydroxide 30ml (MOM) UD suspension PO PRN (07:17)
[2019-05-31 08:00] VITALS: BP 134/86
[2019-05-31] MEDS: mag hydrox/Alum hydrox/simeth 30ml oral suspension PO PRN (12:21)
[2019-05-31] MEDS: ibuprofen 200mg tablet PO PRN (13:58)
--- NOTE | 2019-05-31 15:54 | NUR ---
Nursing Progress Note: Katarzyna Legal hold: Voluntary Client on involuntary status for DTS Report received from CLARA Bartlett Why are they here: This admit is a 38 y/o female, admitted directly from [facility] to the unit at 2014. The patient states that she lives with her mom. She claims that she and her mother were having an argument that got out of hand. The patient reportedly was banging her head against a wall and biting herself. She admits to banging her head, but states that she was possessed. The patient was guarded with information, and she seems to experience paranoid delusions, believing that her mother is the Devil. The patient's mom states that the patient hears voices and is talking to them all day. "She screams and yells at them." The patient has not been taking any medications. She has multiple PHF admissions, and has difficulty maintaining a home due to her symptoms. Assessment What has happened this shift: Patient visible on the unit at the beginning of the shift. First question is regarding her medications and the times of administration. Also of concern is whether or not she will be able to take her belongings (from clothes closet) with her on discharge. Was told that she could take anything in her possession currently. Worked with patient on obsessive, intrusive behaviors which she was responsive to. No s/s of her delusions from yesterday related to being a Goddess. Has been making numerous requests then retreating to room before staff are able to respond to request. verbalizes increased anxiety as she moves towards discharge. S/I, H/I: Denies A/VH: Denies Sleep: 9.75 ADL's: Independent Group attendance: No Were meds taken: Yes Any med S/E: None observed nor reported Mental Status Exam Appearance: Neat, clean, dressed appropriately Eye contact: Direct Behavior: Pleasant and cooperative, interacting appropriately, invasive to personal space when talking Speech: Normal rate and rhythm Mood: intense,obsessive Affect: Animated Thought process: Obsessive, perseverating on medication times Thought Content: medication administration times Cognition: A&Ox3 (off for event) Insight: Poor Judgment: Poor Interventions PRN's used: None at this time Therapeutic interventions: AM provided 1:1 assessment with therapeutic communication and active listening; medication administration/education/monitoring, provide redirection for inappropriate behaviors, Q 15 minute safety checks. Restraints/seclusion/emergency medication: none Justification of Continued Inpatient Treatment: Pt exhibiting manic, erratic behavior based on delusional thought content. Continued therapeutic support and medication management needed to provide stabilization, prevent decompensation, decreasing risk to patient and readmittance.
[2019-05-31] MEDS: NICOTINE POLACRILEX 2 MG LOZENGE BC PRN (18:44)
[2019-05-31 20:00] VITALS: BP 136/101
--- NOTE | 2019-06-01 00:31 | NUR ---
Nursing Progress Note: Legal hold: Voluntary Client on involuntary status for DTS Report received from CLARA Villela Why are they here: This admit is a 38 y/o female, admitted directly from [facility] to the unit at 2014. The patient states that she lives with her mom. She claims that she and her mother were having an argument that got out of hand. The patient reportedly was banging her head against a wall and biting herself. She admits to banging her head, but states that she was possessed. The patient was guarded with information, and she seems to experience paranoid delusions, believing that her mother is the Devil. The patient's mom states that the patient hears voices and is talking to them all day. "She screams and yells at them." The patient has not been taking any medications. She has multiple PHF admissions, and has difficulty maintaining a home due to her symptoms. Assessment What has happened this shift: Patient visible on the unit at the beginning of the shift. Pt continues to perseverates on the times medications to be administered, and within 5 minutes of being on the floor, she asked this caption writer about it. Pt discussed her home situation and how her "mother and her don't get along," and how she "just wants to find a man who will lover her forever and not cheat on her." Patient Pleasant and cooperative with all care at this time, and used showers "as her coping skill." Pt took 3 showers today. No outbursts or attention seeking behaviors at this time. Patient laid down shortly after snack. S/I, H/I: Denies A/VH: Denies Sleep: Asleep at this time ADL's: Independent Group attendance: No groups this shift Were meds taken: Yes Any med S/E: None observed nor reported Mental Status Exam Appearance: Neat, clean, dressed appropriately Eye contact: Direct Behavior: Pleasant and cooperative, interacting appropriately Speech: Normal rate and rhythm Mood: Depressed Affect: Animated Thought process: obsessive about medication times Thought Content: medication administration times Cognition: A&Ox4 Insight: Poor Judgment: Poor Interventions PRN's used: None at this time Therapeutic interventions: AM provided 1:1 assessment with therapeutic communication and active listening; medication administration/education/monitoring, provide redirection for inappropriate behaviors, Q 15 minute safety checks. Restraints/seclusion/emergency medication: none Justification of Continued Inpatient Treatment: Pt exhibiting manic, erratic behavior based on delusional thought content. Continued therapeutic support and medication management needed to provide stabilization, prevent decompensation, decreasing risk to patient and readmittance. Addendum: 06/01/19 at 0316 by Slava Bryson RN Pt requested a stool softener, reports she is constipated. Addendum: 06/01/19 at 0451 by Slava Bryson RN Pt reports having urinary retention, reports that she has only been able to urinate a little at a time. urine sample collected and sent to lab.
[2019-06-01] MEDS: quetiapine 100mg tablet PO SCH ×3 (07:13→20:04)
[2019-06-01] MEDS: oxcarbazepine 150mg tablet PO SCH ×2 (07:13→20:04)
[2019-06-01] MEDS: clonazePAM 1mg tablet PO SCH ×3 (07:13→20:03)
[2019-06-01] MEDS: propranolol 10mg tablet PO SCH ×3 (07:13→20:04)
[2019-06-01 08:36] VITALS: BP 136/88
[2019-06-01] MEDS: NICOTINE POLACRILEX 2 MG LOZENGE BC PRN ×2 (09:07→13:43)
--- NOTE | 2019-06-01 15:32 | NUR ---
Completed [facility] referral with Ct. Faxed to [facility] office. Spoke to Tawanda who reported he will interview Ct this afternoon around 1630. ISIAH Chong Lic# [id number]
--- NOTE | 2019-06-01 17:19 | NUR ---
Nursing Progress Note: Katarzyna Legal hold: Voluntary Client on involuntary status for DTS Report received from CLARA Bartlett Why are they here: This admit is a 38 y/o female, admitted directly from [facility] to the unit at 2014. The patient states that she lives with her mom. She claims that she and her mother were having an argument that got out of hand. The patient reportedly was banging her head against a wall and biting herself. She admits to banging her head, but states that she was possessed. The patient was guarded with information, and she seems to experience paranoid delusions, believing that her mother is the Devil. The patient's mom states that the patient hears voices and is talking to them all day. "She screams and yells at them." The patient has not been taking any medications. She has multiple PHF admissions, and has difficulty maintaining a home due to her symptoms. Assessment What has happened this shift: Patient visible on the unit at the beginning of the shift. Pt did not attend either group. Pt attempts to manipulate situations: missed group, but also wanted the radio, "Its my therapeutic relaxation tool" Pt was able to maintain appropriate bx today and did not have any acting out episodes today. Pt did take two showers today stating she uses that as a coping tool. Pt did not exhibit delusional thought content today and denies s.i. Pt was thinking she was going to be seen today by [facility], but it had not been arranged and pt handled news calmly. SW contacted and now has arranged interview with [facility]. Pt did not request PRN medication today. After meeting with Tawanda from [facility], pt came up and stated, "I don't think I want to go there, you have to go to 20 meetings a week, that more than here" Pt went to her room quietly, with depressed affect. S/I, H/I: Denies A/VH: Denies Sleep: brief nap today ADL's: Independent Group attendance: No Were meds taken: Yes Any med S/E: None observed nor reported Mental Status Exam Appearance: Neat, clean, dressed appropriately Eye contact: Direct Behavior: Pleasant and cooperative, interacting appropriately, invasive to personal space when talking Speech: Normal rate and rhythm Mood: intense,obsessive Affect: Animated Thought process: Obsessive, perseverating on medication times Thought Content: medication administration times Cognition: A&Ox3 (off for event) Insight: Poor Judgment: Poor Interventions PRN's used: None at this time Therapeutic interventions: AM provided 1:1 assessment with therapeutic communication and active listening; medication administration/education/monitoring, provide redirection for inappropriate behaviors, Q 15 minute safety checks. Restraints/seclusion/emergency medication: none Justification of Continued Inpatient Treatment: Pt exhibiting manic, erratic behavior based on delusional thought content. Continued therapeutic support and medication management needed to provide stabilization, prevent decompensation, decreasing risk to patient and readmittance.
[2019-06-01] MEDS: mag hydrox/Alum hydrox/simeth 30ml oral suspension PO PRN (17:33)
[2019-06-01 19:43] VITALS: BP 130/92
[2019-06-01] MEDS: magnesium hydroxide 30ml (MOM) UD suspension PO PRN (20:05)
--- NOTE | 2019-06-01 21:23 | NUR ---
Nursing Progress Note: Katarzyna Legal hold: Voluntary Client on involuntary status for DTS Report received from CLARA Villela Why are they here: This admit is a 38 y/o female, admitted directly from [facility] to the unit at 2014. The patient states that she lives with her mom. She claims that she and her mother were having an argument that got out of hand. The patient reportedly was banging her head against a wall and biting herself. She admits to banging her head, but states that she was possessed. The patient was guarded with information, and she seems to experience paranoid delusions, believing that her mother is the Devil. The patient's mom states that the patient hears voices and is talking to them all day. "She screams and yells at them." The patient has not been taking any medications. She has multiple PHF admissions, and has difficulty maintaining a home due to her symptoms. Assessment What has happened this shift: Pt was walking in the hallway w/headphones on and pacifier in her mouth at change of shift, began asking for 1900 meds then refused 1900 meds and wanted to take at 2000 w/all her meds together. Pt states she part su so she likes to eat meat. She was talking about having roast beef for dinner. Later in the evening, patient saw the millard and stated "look its full millard! take a picture!" then she began howling loudly. Asked pt about [facility] and she states "I dont want to talk about all of that, I've talked enough about that today." pts appetite is good, states she has been sleeping "better" and wants meds early because she wants to go to bed, but then didnt go to bed. S/I, H/I: Denies A/VH: Denies Sleep: brief nap today ADL's: Independent Group attendance: No Were meds taken: Yes Any med S/E: None observed nor reported Mental Status Exam Appearance: Neat, clean, dressed appropriately Eye contact: Direct Behavior: Pleasant and cooperative, interacting appropriately, invasive to personal space when talking Speech: Normal rate and rhythm Mood: intense,obsessive Affect: Animated Thought process: Obsessive, perseverating on medication times Thought Content: medication administration times Cognition: A&Ox3 (off for event) Insight: Poor Judgment: Poor Interventions PRN's used: None at this time Therapeutic interventions: AM provided 1:1 assessment with therapeutic communication and active listening; medication administration/education/monitoring, provide redirection for inappropriate behaviors, Q 15 minute safety checks. Restraints/seclusion/emergency medication: none Justification of Continued Inpatient Treatment: Pt exhibiting manic, erratic behavior based on delusional thought content. Continued therapeutic support and medication management needed to provide stabilization, prevent decompensation, decreasing risk to patient and readmittance.
[2019-06-02] MEDS: mag hydrox/Alum hydrox/simeth 30ml oral suspension PO PRN (04:46)
[2019-06-02] MEDS: propranolol 10mg tablet PO SCH ×2 (07:08→12:02)
[2019-06-02] MEDS: clonazePAM 1mg tablet PO SCH (07:08)
[2019-06-02] MEDS: oxcarbazepine 150mg tablet PO SCH (07:09)
[2019-06-02] MEDS: quetiapine 100mg tablet PO SCH ×2 (07:09→12:01)
[2019-06-02 08:00] VITALS: BP 135/83
[2019-06-02] MEDS ORDERED: PROP10TA10 PO (09:48)
[2019-06-02] MEDS ORDERED: OXCA150T14 PO (09:48)
[2019-06-02] MEDS ORDERED: QUET100T33 PO ×2 (09:48)
[2019-06-02] MEDS ORDERED: NICO-668 BC (09:48)
[2019-06-02] MEDS: NICOTINE POLACRILEX 2 MG LOZENGE BC PRN ×2 (09:55→14:11)
[2019-06-02] MEDS ORDERED: CLON-286 PO (10:24)
[2019-06-02] MEDS ORDERED: clonazePAM 1mg tablet PO ONE (11:45)
--- NOTE | 2019-06-02 14:27 | NUR ---
Discharge Note: Initially this am when pt found out today was the day for discharge, pt became very anxious, but after some venting and crying, pt stabilized and patiently awaited d/c.D/C instruction reviewed with the pt and she verbalized understanding and signed and copy given to the pt. Discussion with pt for her to take advantage of this opportunity and do the program and follow rules because her options will decrease if she is unsuccessful in this program. Pt given smoking cessation information. Pt sent with medications and f/u appt. All belongings and valuables returned to the pt and she agree she had all of her belongings and signed. 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
[2019-06-02] MEDS ORDERED: clonazePAM 1mg tablet PO SCH (20:00)
== END 2019-06-02 14:27 | disposition home or self-care (01) | DRG 885 ==
LOC: ADULT MH 12:17
PROVIDERS: ADMIT Psychiatry & Neurology Psychiatry; ATTEND Psychiatry & Neurology Psychiatry
DX: F25.0 Schizoaffective disorder, bipolar type (principal); F19.11 Other psychoactive substance abuse, in remission; F42.9 Obsessive-compulsive disorder, unspecified; F43.10 Post-traumatic stress disorder, unspecified; G89.29 Other chronic pain; M54.9 Dorsalgia, unspecified; F41.9 Anxiety disorder, unspecified; F60.3 Borderline personality disorder; F90.9 Attention-deficit hyperactivity disorder, unspecified type; F15.19 Other stimulant abuse with unspecified stimulant-induced disorder; F12.10 Cannabis abuse, uncomplicated; F14.90 Cocaine use, unspecified, uncomplicated; F17.200 Nicotine dependence, unspecified, uncomplicated; F41.0 Panic disorder [episodic paroxysmal anxiety]; J45.909 Unspecified asthma, uncomplicated; Z59.0 Homelessness; Z83.3 Family history of diabetes mellitus; Z71.6 Tobacco abuse counseling
CPT/HCPCS: 36415; 80061; 83036; 87081; 99285; J1200; J1630; J2060; Z7610

== ENCOUNTER 2019-09-08 07:17 | Emergency (ER) | payer MEDICARE, MEDICAID ==
[~2019-09-08] VITALS: Ht 157.5 cm; Wt 70.5 kg
[~2019-09-08 07:17] MED LIST changes: -ALBU18HF2 INH; -CLON-512 PO; +CLON1TAB60 PO; -FLUT16SP26 INH; -MOT200T PO; +NICO-668 BC; +NO HOME MEDS; +OXCA150T14 PO; +PROP10TA10 PO; +QUET100T33 PO; -TRAM50TA2 PO; -ZIPR60CA7 PO; -[UNRECOGNIZED DRUG - CODE] PO
[2019-09-08 07:21] VITALS: BP 122/76
[2019-09-08 08:42] LABS: BASOPHILS % (AUTO) 0.2 % (0-1); EOSINOPHILS % (AUTO) 0.2 % (0-6); HEMATOCRIT 41.5 % (35.0-45.0); HEMOGLOBIN 13.7 g/dl (12.0-16.0); LYMPHOCYTES # (AUTO) 0.7 X10'3 (1.1-4.8); MEAN CORPUSCULAR HEMOGLOBIN 28.9 PG (27.0-31.0); MEAN CORPUSCULAR HGB CONC 33.1 g/dL (33.0-36.5); MEAN CORPUSCULAR VOLUME 87.2 FL (78-98); MEAN PLATELET VOLUME 8.3 FL (7.4-10.4); MONOCYTES # (AUTO) 0.6 X10'3 (0-0.9); MONOCYTES % (AUTO) 6.2 % (2-12); NEUTROPHILS # (AUTO) 8.7 X10'3 (1.8-7.7); NEUTROPHILS % (AUTO) 86.4 % (42-75); PLATELET COUNT 399 X10'3 (140-440); RED BLOOD COUNT 4.75 X10'6 (4.20-5.60); RED CELL DISTRIBUTION WIDTH 15.4 % (11.5-14.5)
[2019-09-08 09:11] LABS: ALANINE AMINOTRANSFERASE 26 U/L (12-78); ALBUMIN 3.8 G/DL (3.4-5.0); ALKALINE PHOSPHATASE 99 IU/L (46-116); ASPARTATE AMINO TRANSFERASE 15 U/L (10-37); BILIRUBIN,TOTAL 0.4 MG/DL (0.1-1.0); BLOOD UREA NITROGEN 11 MG/DL (7-18); BUN/CREATININE RATIO 13.3 (6.6-38.0); CALCIUM 8.5 MG/DL (8.5-10.1); CHLORIDE 101 MMOL/L (99-107); CREATININE 0.83 MG/DL (0.40-0.90); GLUCOSE 92 MG/DL (70-104); POTASSIUM 3.8 MMOL/L (3.5-5.1); TOTAL PROTEIN 7.5 G/DL (6.4-8.2); eGFR 77 ML/MIN
[2019-09-08 09:21] LABS: TOTAL CARBON DIOXIDE 20.9 MMOL/L (24-32)
[2019-09-08 09:23] LABS: ANION GAP 12 (8-16); SODIUM 134 MMOL/L (135-145)
== END 2019-09-08 11:40 | disposition home or self-care (01) ==
LOC: ER 07:18
DX: R53.1 Weakness (principal); R53.83 Other fatigue; R11.2 Nausea with vomiting, unspecified; R05 Cough; G89.29 Other chronic pain; J45.909 Unspecified asthma, uncomplicated; F41.9 Anxiety disorder, unspecified; F20.9 Schizophrenia, unspecified; F15.90 Other stimulant use, unspecified, uncomplicated; Z60.2 Problems related to living alone; Z59.0 Homelessness; Z56.0 Unemployment, unspecified; Z88.6 Allergy status to analgesic agent; Z79.899 Other long term (current) drug therapy
CPT/HCPCS: 36415; 80053; 85025; 86618; 87502; 87503; 93005; 99284

== ENCOUNTER 2020-11-04 19:13 | Emergency (ER) | payer MEDICARE, MEDICAID ==
[~2020-11-04] VITALS: Ht 157.5 cm; Wt 95.5 kg
[2020-11-04 22:07] VITALS: BP 144/102
--- NOTE | 2020-11-04 22:15 | NUR ---
pt given water and saltine crackers for PO challenge
== END 2020-11-04 22:39 | disposition home or self-care (01) ==
LOC: ER 19:15
DX: R11.2 Nausea with vomiting, unspecified (principal); R19.7 Diarrhea, unspecified; R53.1 Weakness; R68.83 Chills (without fever); I10 Essential (primary) hypertension; F15.90 Other stimulant use, unspecified, uncomplicated; J45.909 Unspecified asthma, uncomplicated; G89.29 Other chronic pain; Z56.0 Unemployment, unspecified; Z59.0 Homelessness; Z88.8 Allergy status to other drugs, medicaments and biological substances; Z79.899 Other long term (current) drug therapy
CPT/HCPCS: 99281

== ENCOUNTER 2020-11-09 20:12 | Emergency (ER) | payer MEDICARE, MEDICAID ==
[~2020-11-09] VITALS: Ht 157.5 cm; Wt 93.2 kg
--- NOTE | 2020-11-09 20:14 | NUR ---
called pt for triage, however, she went to the BR.
[2020-11-09 20:27] VITALS: BP 144/97
== END 2020-11-09 21:44 | disposition home or self-care (01) ==
LOC: ER 20:14
DX: F41.9 Anxiety disorder, unspecified (principal); J45.909 Unspecified asthma, uncomplicated; G89.29 Other chronic pain; F20.9 Schizophrenia, unspecified; F15.90 Other stimulant use, unspecified, uncomplicated; Z98.890 Other specified postprocedural states; Z60.2 Problems related to living alone; Z56.0 Unemployment, unspecified; Z59.0 Homelessness
CPT/HCPCS: 99281

== ENCOUNTER 2023-08-22 00:34 | Emergency (ER) | payer MEDICARE, MEDICAID ==
[~2023-08-22] VITALS: Ht 157.5 cm; Wt 96.7 kg
[~2023-08-22 00:34] MED LIST changes: -CLON1TAB60 PO; +DULO60CA65 PO; -NICO-668 BC; -OXCA150T14 PO; -PROP10TA10 PO; -QUET100T33 PO; +QUET200T31 PO; +QUET25TA36 PO
[2023-08-22] MEDS ORDERED: LORazepam 0.5 MG tablet PO ONE (02:55)
[2023-08-22 03:59] LABS: ALANINE AMINOTRANSFERASE 121 U/L (12-78); ALBUMIN 3.7 G/DL (3.4-5.0); ALBUMIN/GLOBULIN RATIO 0.9 (1.1-1.5); ALKALINE PHOSPHATASE 93 IU/L (46-116); ANION GAP 9 (8-16); ASPARTATE AMINO TRANSFERASE 40 U/L (10-37); BILIRUBIN,TOTAL 0.3 MG/DL (0.1-1.0); BLOOD UREA NITROGEN 18 MG/DL (7-18); BUN/CREATININE RATIO 20.2 (10.0-20.0); CALCIUM 9.1 MG/DL (8.5-10.1); CHLORIDE 101 MMOL/L (99-107); CREATININE 0.89 MG/DL (0.40-0.90); GLUCOSE 94 MG/DL (70-104); MAGNESIUM 1.9 MG/DL (1.5-2.4); SODIUM 135 MMOL/L (135-145); TOTAL CARBON DIOXIDE 25.5 MMOL/L (24-32); TOTAL PROTEIN 7.8 G/DL (6.4-8.2); eCRCL 64 ML/MIN; eGFR 69 ML/MIN
[2023-08-22 04:01] LABS: BASOPHILS # (AUTO) 0.1 X10'3 (0-0.2); EOSINOPHILS # (AUTO) 0.1 X10'3 (0-0.9); MEAN CORPUSCULAR HEMOGLOBIN 28.5 PG (27.0-31.0); MEAN CORPUSCULAR HGB CONC 32.7 g/dL (33.0-36.5); MEAN PLATELET VOLUME 8.3 FL (7.4-10.4)
[2023-08-22 04:04] LABS: BASOPHILS % (AUTO) 1.1 % (0-1); EOSINOPHILS % (AUTO) 0.9 % (0-6); HEMATOCRIT 39.7 % (35.0-45.0); LYMPHOCYTES # (AUTO) 2.8 X10'3 (1.1-4.8); LYMPHOCYTES % (AUTO) 36.6 % (21-51); MONOCYTES # (AUTO) 0.8 X10'3 (0-0.9); MONOCYTES % (AUTO) 11.1 % (2-12); NEUTROPHILS # (AUTO) 3.8 X10'3 (1.8-7.7); NEUTROPHILS % (AUTO) 50.3 % (42-75); PLATELET COUNT 464 X10'3 (140-440); RED BLOOD COUNT 4.56 X10'6 (4.20-5.60); RED CELL DISTRIBUTION WIDTH 13.7 % (11.5-14.5); WHITE BLOOD COUNT 7.6 X10'3 (4.5-11.0)
[2023-08-22 05:55] LABS: BILIRUBIN,URINE NEGATIVE (Neg); COLOR,URINE YELLOW (Yellow); GLUCOSE, URINE NEGATIVE (Neg); KETONES,URINE TRACE mg/dl (Neg); LEUKOCYTE ESTERASE ,URINE NEGATIVE (Neg); NITRITES, URINE NEGATIVE (Neg); OCCULT BLOOD,URINE NEGATIVE (Neg); PH,URINE 5.5 (4.8-8.0); PROTEIN,URINE NEGATIVE (Neg); UROBILINOGEN,URINE 0.2 E.U/dL (0.2-1.0)
[2023-08-22 06:16] LABS: CLARITY,URINE CLOUDY (Clear); UA COLLECTION TYPE CLN CATCH MIDSTREAM
[2023-08-22 06:27] LABS: MUCUS STRANDS MANY /LPF (Neg); SQUAMOUS EPITHELIAL CELL,UR MANY /LPF (FEW)
[2023-08-22 06:29] LABS: CAL OXALATE CRYSTALS 1+ /HPF (NEGATIVE)
[2023-08-22 06:30] LABS: BACTERIA,URINE 1+ /HPF (Neg); WBC,URINE 0-4 /HPF (0-4)
[2023-08-22 06:31] LABS: RBC,URINE 0-2 /HPF (0-2); TRANSITIONAL EPI CELLS,URINE FEW /HPF
[2023-08-22 06:32] LABS: AMORPHOUS URATES 1+
[2023-08-22] MEDS ORDERED: CefTRIAXone/D5W-Rocephin 1gm 50 ML IV ONE (07:00)
[2023-08-22 07:30] VITALS: BP 108/87; PULSE 100; RESP 16; TEMP 98; O2SAT 96
== END 2023-08-22 07:34 | disposition home or self-care (01) ==
LOC: ER 00:35
DX: F41.9 Anxiety disorder, unspecified (principal); E86.0 Dehydration; G89.29 Other chronic pain; M54.9 Dorsalgia, unspecified; J45.909 Unspecified asthma, uncomplicated; F31.9 Bipolar disorder, unspecified; F20.9 Schizophrenia, unspecified; F15.10 Other stimulant abuse, uncomplicated; Z59.00 Homelessness unspecified; Z56.0 Unemployment, unspecified; Z88.6 Allergy status to analgesic agent; Z79.899 Other long term (current) drug therapy
CPT/HCPCS: 36415; 80053; 81001; 83735; 85025; 99283

== ENCOUNTER 2023-10-09 17:35 | Emergency (ER) | payer MEDICARE, MEDICAID ==
[~2023-10-09] VITALS: Ht 157.5 cm; Wt 100.0 kg
[~2023-10-09 17:35] MED LIST changes: -DULO60CA65 PO; +HYDR-3686 PO; +OLAN20TA19 PO; +OLAN5TAB75 PO; -QUET200T31 PO; -QUET25TA36 PO; +SERT-432 PO; +TRAZ-251 PO
[2023-10-09 18:18] LABS: BASOPHILS # (AUTO) 0.1 X10'3 (0-0.2); EOSINOPHILS # (AUTO) 0.2 X10'3 (0-0.9); EOSINOPHILS % (AUTO) 2.1 % (0-6); HEMATOCRIT 36.6 % (35.0-45.0); LYMPHOCYTES # (AUTO) 2.7 X10'3 (1.1-4.8); LYMPHOCYTES % (AUTO) 30.7 % (21-51); MEAN CORPUSCULAR HEMOGLOBIN 27.5 PG (27.0-31.0); MEAN CORPUSCULAR HGB CONC 32.7 g/dL (33.0-36.5); MEAN PLATELET VOLUME 8.5 FL (7.4-10.4); MONOCYTES # (AUTO) 0.8 X10'3 (0-0.9); MONOCYTES % (AUTO) 9.1 % (2-12); NEUTROPHILS % (AUTO) 57.1 % (42-75); PLATELET COUNT 435 X10'3 (140-440); RED BLOOD COUNT 4.35 X10'6 (4.20-5.60); RED CELL DISTRIBUTION WIDTH 14.8 % (11.5-14.5); WHITE BLOOD COUNT 8.7 X10'3 (4.5-11.0)
[2023-10-09 18:31] LABS: ALBUMIN 3.3 G/DL (3.4-5.0); ANION GAP 10 (8-16); BLOOD UREA NITROGEN 16 MG/DL (7-18); BUN/CREATININE RATIO 17.4 (10.0-20.0); CALCIUM 8.4 MG/DL (8.5-10.1); CHLORIDE 103 MMOL/L (99-107); CREATININE 0.92 MG/DL (0.40-0.90); GLUCOSE 143 MG/DL (70-104); POTASSIUM 3.9 MMOL/L (3.5-5.1); SODIUM 137 MMOL/L (135-145); THYROID STIMULATING HORMONE 5.43 ulU/ml (0.34-4.50); TOTAL CARBON DIOXIDE 23.7 MMOL/L (24-32); eCRCL 62 ML/MIN; eGFR 67 ML/MIN
[2023-10-09 18:32] LABS: ETHANOL < 10 MG/DL (<10)
[2023-10-09 19:05] LABS: BILIRUBIN,URINE NEGATIVE (Neg); CLARITY,URINE CLEAR (Clear); COLOR,URINE STRAW (Yellow); GLUCOSE, URINE NEGATIVE (Neg); KETONES,URINE NEGATIVE (Neg); LEUKOCYTE ESTERASE ,URINE NEGATIVE (Neg); NITRITES, URINE NEGATIVE (Neg); OCCULT BLOOD,URINE NEGATIVE (Neg); PH,URINE 6.5 (4.8-8.0); PROTEIN,URINE NEGATIVE (Neg); URINE HCG NEGATIVE (NEG); UROBILINOGEN,URINE 0.2 E.U/dL (0.2-1.0)
[2023-10-09 19:10] LABS: UA COLLECTION TYPE CLN CATCH MIDSTREAM
[2023-10-09 19:27] LABS: URINE AMPHETAMINE SCREEN NEGATIVE (Neg); URINE BARBITUATE SCREEN NEGATIVE (Neg); URINE BENZODIAZEPINES SCREEN NEGATIVE (Neg); URINE CANNABINOID SCREEN NEGATIVE (Neg); URINE COCAINE SCREEN NEGATIVE (Neg); URINE METHADONE SCREEN NEGATIVE (Neg); URINE OPIATE SCREEN NEGATIVE (Neg); URINE PHENCYCLIDINE SCREEN NEGATIVE (Neg)
[2023-10-09] MEDS ORDERED: OLAN5TAB3 PO (21:32)
[2023-10-09] MEDS ORDERED: HYDR-3686 PO (21:32)
[2023-10-09] MEDS ORDERED: SERT25TA84 PO (21:32)
[2023-10-09] MEDS ORDERED: OLAN20TA5 PO (21:32)
[2023-10-09] MEDS ORDERED: SERT-153 PO (21:32)
[2023-10-09] MEDS ORDERED: TRAZ-256 PO (21:32)
[2023-10-09] MEDS: LORazepam 1 MG tablet PO ONE (21:49)
[2023-10-09] MEDS: hydrOXYzine 25 MG tablet PO SCH (22:23)
[2023-10-09] MEDS: traZODone 50mg tablet PO SCH (22:30)
[2023-10-09] MEDS: olanzapine 10mg tablet PO SCH (22:31)
[2023-10-10 05:56] VITALS: BP 120/63; PULSE 65; TEMP 96.7; O2SAT 95
[2023-10-10] MEDS: sertraline 25mg tablet PO SCH (07:22)
[2023-10-10] MEDS: OLANZAPINE 5 MG TABLET PO SCH (07:22)
[2023-10-10] MEDS: hydrOXYzine 25 MG tablet PO PRN (07:22)
[2023-10-10] MEDS: sertraline 50mg tablet PO SCH (07:22)
[2023-10-10 08:25] VITALS: RESP 16
[2023-10-10] MEDS: LORazepam 0.5 MG tablet PO ONE (09:39)
== END 2023-10-10 18:11 ==
LOC: ER 17:36
DX: F32.A Depression, unspecified (principal); R45.851 Suicidal ideations; Z20.822 Contact with and (suspected) exposure to COVID-19; G89.29 Other chronic pain; M54.9 Dorsalgia, unspecified; F20.9 Schizophrenia, unspecified; F41.9 Anxiety disorder, unspecified; F15.10 Other stimulant abuse, uncomplicated; Z59.00 Homelessness unspecified; Z56.0 Unemployment, unspecified; Z88.6 Allergy status to analgesic agent; Z79.899 Other long term (current) drug therapy
CPT/HCPCS: 36415; 80048; 80305; 80320; 81003; 81025; 84443; 85025; 87811; 99285; Q0177

== ENCOUNTER 2023-11-21 21:02 | Inpatient (IN) | payer MEDICARE, MEDICAID ==
[~2023-11-21] VITALS: Ht 157.5 cm; Wt 103.8 kg
[~2023-11-21 21:02] MED LIST changes: +OLAN20TA5 PO; +OLAN5TAB3 PO; +SERT-153 PO; +SERT25TA84 PO; +TRAZ-256 PO
[2023-11-21 22:19] LABS: ALBUMIN 3.6 G/DL (3.4-5.0); ANION GAP 11 (8-16); BLOOD UREA NITROGEN 24 MG/DL (7-18); BUN/CREATININE RATIO 27.3 (10.0-20.0); CALCIUM 8.9 MG/DL (8.5-10.1); CHLORIDE 104 MMOL/L (99-107); CREATININE 0.88 MG/DL (0.40-0.90); GLUCOSE 99 MG/DL (70-104); SALICYLATE 2.2 MG/DL (4.0-20.0); SODIUM 138 MMOL/L (135-145); TOTAL CARBON DIOXIDE 23.4 MMOL/L (24-32); eCRCL 65 ML/MIN; eGFR 70 ML/MIN
[2023-11-21 22:23] LABS: URINE HCG NEGATIVE (NEG)
[2023-11-21 22:23] LABS: ACETAMINOPHEN < 2.0 UG/ML (10-30); BASOPHILS # (AUTO) 0.1 X10'3 (0-0.2); BASOPHILS % (AUTO) 0.8 % (0-1); EOSINOPHILS # (AUTO) 0.2 X10'3 (0-0.9); EOSINOPHILS % (AUTO) 2.4 % (0-6); HEMATOCRIT 36.3 % (35.0-45.0); HEMOGLOBIN 12.1 g/dl (12.0-16.0); LYMPHOCYTES # (AUTO) 2.5 X10'3 (1.1-4.8); LYMPHOCYTES % (AUTO) 28.4 % (21-51); MEAN CORPUSCULAR HEMOGLOBIN 27.5 PG (27.0-31.0); MEAN CORPUSCULAR HGB CONC 33.2 g/dL (33.0-36.5); MEAN CORPUSCULAR VOLUME 82.8 FL (78-98); MEAN PLATELET VOLUME 8.2 FL (7.4-10.4); MONOCYTES # (AUTO) 0.7 X10'3 (0-0.9); NEUTROPHILS # (AUTO) 5.2 X10'3 (1.8-7.7); NEUTROPHILS % (AUTO) 60.4 % (42-75); PLATELET COUNT 411 X10'3 (140-440); RED BLOOD COUNT 4.39 X10'6 (4.20-5.60); RED CELL DISTRIBUTION WIDTH 15.9 % (11.5-14.5); WHITE BLOOD COUNT 8.6 X10'3 (4.5-11.0)
[2023-11-21 22:24] LABS: BILIRUBIN,URINE NEGATIVE (Neg); CLARITY,URINE CLOUDY (Clear); COLOR,URINE YELLOW (Yellow); GLUCOSE, URINE NEGATIVE (Neg); KETONES,URINE 15 mg/dl (Neg); LEUKOCYTE ESTERASE ,URINE NEGATIVE (Neg); NITRITES, URINE NEGATIVE (Neg); OCCULT BLOOD,URINE NEGATIVE (Neg); PROTEIN,URINE NEGATIVE (Neg); UROBILINOGEN,URINE 0.2 E.U/dL (0.2-1.0)
[2023-11-21 22:24] LABS: ETHANOL < 10 MG/DL (<10)
[2023-11-21 22:25] LABS: UA COLLECTION TYPE CLN CATCH MIDSTREAM
[2023-11-21 22:31] LABS: BACTERIA,URINE 2+ /HPF (Neg); MUCUS STRANDS FEW /LPF (Neg); RENAL CELLS, URINE MODERATE /HPF; SQUAMOUS EPITHELIAL CELL,UR MANY /LPF (FEW); TRANSITIONAL EPI CELLS,URINE FEW /HPF; WBC,URINE 0-4 /HPF (0-4)
[2023-11-21 22:39] LABS: URINE AMPHETAMINE SCREEN NEGATIVE (Neg); URINE BARBITUATE SCREEN NEGATIVE (Neg); URINE BENZODIAZEPINES SCREEN NEGATIVE (Neg); URINE CANNABINOID SCREEN NEGATIVE (Neg); URINE COCAINE SCREEN NEGATIVE (Neg); URINE METHADONE SCREEN NEGATIVE (Neg); URINE OPIATE SCREEN NEGATIVE (Neg); URINE PHENCYCLIDINE SCREEN NEGATIVE (Neg)
[2023-11-21] MEDS ORDERED: PROP10TA10 PO (22:46)
[2023-11-21] MEDS ORDERED: TRAZ-251 PO (22:46)
[2023-11-21] MEDS ORDERED: OLAN15TA3 PO (22:46)
[2023-11-21] MEDS ORDERED: FLUO20CA39 PO (22:46)
[2023-11-21] MEDS: OLANZAPINE 5 MG TABLET PO SCH (23:32)
[2023-11-21] MEDS: propranolol 10mg tablet PO SCH (23:33)
[2023-11-22] MEDS: FLUoxetine 20mg capsule PO SCH (09:01)
[2023-11-22] MEDS: OLANZAPINE 5 MG TABLET PO SCH (09:01)
[2023-11-22] MEDS: ibuprofen tablet 400 MG TABLET PO PRN (09:03)
[2023-11-22] MEDS ORDERED: loperamide 2mg capsule PO PRN (14:00)
[2023-11-22] MEDS ORDERED: magnesium hydroxide 30ml (MOM) UD suspension PO PRN (14:00)
[2023-11-22] MEDS ORDERED: mag hydrox/Alum hydrox/simeth 30ml oral suspension PO PRN (14:00)
[2023-11-22 14:16] VITALS: BP 116/87; PULSE 107; RESP 14; TEMP 99; O2SAT 95
[2023-11-22] MEDS: traZODone 50mg tablet PO PRN (20:07)
[2023-11-23 07:58] LABS: HEMOGLOBIN A1C 6.2 % (4.5-6.2)
[2023-11-23 08:00] VITALS: BP 127/82; PULSE 84; RESP 16; TEMP 97; O2SAT 95
[2023-11-23 08:10] LABS: CHOLESTEROL 245 MG/DL (0-200); HDL CHOLESTEROL 41 MG/DL (35-60); LDL CHOLESTEROL 189 MG/DL (50-100); TRIGLYCERIDES 138 MG/DL (20-135)
[2023-11-23] MEDS: ibuprofen tablet 400 MG TABLET PO ONE (08:31)
[2023-11-23] MEDS: LIDOcaine 5% patch TP SCH (08:31)
[2023-11-23] MEDS: ibuprofen tablet 400 MG TABLET PO PRN (18:27)
[2023-11-23 20:00] VITALS: BP 132/96; PULSE 71; RESP 18; TEMP 98.2; O2SAT 96
[2023-11-24 07:00] VITALS: RESP 14; O2SAT 95
[2023-11-24] MEDS: atorvastatin 10mg tablet PO SCH (07:53)
[2023-11-24 08:00] VITALS: BP 125/85; PULSE 71; RESP 14; TEMP 98.2; O2SAT 95
[2023-11-24 12:00] VITALS: BP 139/81; PULSE 71
[2023-11-24 20:00] VITALS: BP 113/72; PULSE 70; TEMP 98.3
[2023-11-25 07:10] VITALS: RESP 16; O2SAT 96
[2023-11-25 08:00] VITALS: BP 143/84; PULSE 77; RESP 16; TEMP 98.5; O2SAT 96
[2023-11-25 19:11] VITALS: RESP 16; O2SAT 97
[2023-11-25 19:41] VITALS: BP 127/76; PULSE 77; RESP 18; TEMP 98.2; O2SAT 96
[2023-11-26 07:00] VITALS: RESP 16; O2SAT 96
[2023-11-26 08:00] VITALS: BP 124/77; PULSE 72; RESP 16; TEMP 98.6; O2SAT 96
[2023-11-26 19:00] VITALS: RESP 14; O2SAT 95
[2023-11-26 19:28] VITALS: BP 122/71; PULSE 80; RESP 14; TEMP 99.1; O2SAT 95
[2023-11-27 07:00] VITALS: RESP 16; O2SAT 96
[2023-11-27 08:00] VITALS: BP 139/90; PULSE 76; RESP 16; TEMP 97.7; O2SAT 96
[2023-11-27 19:00] VITALS: RESP 15; O2SAT 97
[2023-11-27 19:27] VITALS: BP 129/77; PULSE 80; RESP 15; TEMP 98.8; O2SAT 97
[2023-11-28 07:00] VITALS: RESP 16; O2SAT 96
[2023-11-28 07:32] VITALS: BP 134/70; PULSE 77; RESP 16; TEMP 97.4; O2SAT 96
[2023-11-28 19:40] VITALS: RESP 16; O2SAT 96
[2023-11-28 20:00] VITALS: BP 118/73; PULSE 88; RESP 16; TEMP 99; O2SAT 96
[2023-11-29 07:00] VITALS: RESP 16; O2SAT 95
[2023-11-29 07:19] VITALS: BP 146/84; PULSE 74; RESP 16; TEMP 98.8; O2SAT 95
[2023-11-29 19:00] VITALS: RESP 16; O2SAT 94
[2023-11-29 20:00] VITALS: BP 123/88; PULSE 75; RESP 16; TEMP 98.8; O2SAT 94
[2023-11-30 08:00] VITALS: BP 131/81; PULSE 74; RESP 16; TEMP 98.2; O2SAT 93
[2023-11-30 19:00] VITALS: RESP 19; O2SAT 96
[2023-11-30 19:12] VITALS: BP 117/73; PULSE 77; RESP 19; TEMP 98.6; O2SAT 96
[2023-12-01 07:15] VITALS: RESP 18; O2SAT 95
[2023-12-01 08:00] VITALS: BP 137/82; PULSE 82; RESP 16; TEMP 99; O2SAT 96
[2023-12-01 19:29] VITALS: BP 117/78; PULSE 86; RESP 19; TEMP 99; O2SAT 95
[2023-12-02 07:00] VITALS: RESP 18; O2SAT 94
[2023-12-02] MEDS: fluticasone nasal spray 16GM bottle NS SCH (07:18)
[2023-12-02 08:00] VITALS: BP 142/82; PULSE 86; RESP 18; TEMP 98.5; O2SAT 94
[2023-12-02 19:00] VITALS: RESP 20; O2SAT 98
[2023-12-02 19:30] VITALS: BP 128/76; PULSE 81; RESP 20; TEMP 98.5; O2SAT 98
[2023-12-03 07:10] VITALS: RESP 18; O2SAT 97
[2023-12-03 08:00] VITALS: BP 136/82; PULSE 79; RESP 14; TEMP 98.7; O2SAT 97
[2023-12-03 19:00] VITALS: RESP 16; O2SAT 94
[2023-12-03 20:21] VITALS: BP 115/68; PULSE 84; RESP 16; TEMP 98.2; O2SAT 94
[2023-12-04 07:00] VITALS: BP 148/80; PULSE 75; RESP 12; TEMP 97.6; O2SAT 96
[2023-12-04 12:21] VITALS: BP 123/80; PULSE 81
[2023-12-04 19:00] VITALS: BP 126/75; PULSE 85; RESP 16; TEMP 97.8; O2SAT 93
[2023-12-05 07:00] VITALS: RESP 16; O2SAT 97
[2023-12-05 07:30] VITALS: BP 140/78; PULSE 80; RESP 16; TEMP 98.9; O2SAT 97
[2023-12-05 19:13] VITALS: BP 119/71; PULSE 79; RESP 18; TEMP 98.9; O2SAT 95
[2023-12-06 07:00] VITALS: RESP 15; O2SAT 97
[2023-12-06 07:30] VITALS: BP 127/96; PULSE 84; RESP 15; TEMP 98.1; O2SAT 97
[2023-12-06 13:00] VITALS: BP 136/78; PULSE 84
[2023-12-06 19:17] VITALS: BP 120/68; PULSE 79; RESP 14; TEMP 97.8; O2SAT 94
[2023-12-07 07:00] VITALS: RESP 16; O2SAT 96
[2023-12-07 08:00] VITALS: BP 113/90; PULSE 87; RESP 16; TEMP 97.4; O2SAT 96
[2023-12-07 19:00] VITALS: RESP 16; O2SAT 96
[2023-12-07 20:00] VITALS: BP 102/66; PULSE 82; RESP 16; TEMP 99; O2SAT 96
[2023-12-08 07:30] VITALS: BP 124/73; PULSE 91; RESP 14; TEMP 98.2; O2SAT 96
[2023-12-08 07:59] VITALS: RESP 14; O2SAT 96
[2023-12-08 13:05] VITALS: BP 113/86; PULSE 83
[2023-12-08 19:32] VITALS: RESP 16; O2SAT 96
[2023-12-08 19:51] VITALS: BP 102/60; PULSE 88; RESP 16; TEMP 98.8; O2SAT 96
[2023-12-09 07:30] VITALS: BP 121/75; PULSE 86; RESP 16; TEMP 99; O2SAT 97
[2023-12-09 08:38] VITALS: RESP 16; O2SAT 97
[2023-12-09 12:49] VITALS: BP 127/86; PULSE 76; O2SAT 100
[2023-12-09 19:19] VITALS: BP 124/70; PULSE 90; RESP 16; TEMP 98.5; O2SAT 90
[2023-12-10 07:11] VITALS: BP 163/85; PULSE 82; RESP 16; TEMP 98.3; O2SAT 96
[2023-12-10 07:57] VITALS: RESP 16; O2SAT 96
[2023-12-10 19:00] VITALS: RESP 18; O2SAT 97
[2023-12-10 20:38] VITALS: BP 131/78; PULSE 76; RESP 18; TEMP 99; O2SAT 97
[2023-12-11 07:00] VITALS: RESP 16; O2SAT 96
[2023-12-11 08:10] VITALS: BP 125/91; PULSE 83; RESP 16; TEMP 98.5; O2SAT 96
[2023-12-11 18:41] VITALS: RESP 15; RESP 16; O2SAT 94; O2SAT 96
[2023-12-11 19:00] VITALS: BP 112/67; PULSE 72; RESP 15; TEMP 98.9; O2SAT 94
[2023-12-12 07:00] VITALS: RESP 14; O2SAT 95
[2023-12-12 07:30] VITALS: BP 126/79; PULSE 75; RESP 14; TEMP 98.4; O2SAT 95
[2023-12-12 13:30] VITALS: BP 117/78; PULSE 80
[2023-12-12 19:00] VITALS: RESP 16; O2SAT 95
[2023-12-12 20:00] VITALS: BP 113/61; PULSE 81; RESP 16; TEMP 97.1; O2SAT 95
[2023-12-13 07:00] VITALS: RESP 18; O2SAT 97
[2023-12-13 07:30] VITALS: BP 128/80; PULSE 80; RESP 18; TEMP 98.6; O2SAT 97
[2023-12-13 19:30] VITALS: BP 127/77; PULSE 78; RESP 14; TEMP 98.2; O2SAT 96
[2023-12-14 07:00] VITALS: RESP 16; O2SAT 97
[2023-12-14 08:00] VITALS: BP 112/82; PULSE 83; RESP 16; TEMP 98.9; O2SAT 95
[2023-12-14 19:30] VITALS: BP 123/68; PULSE 78; RESP 18; TEMP 98.9; O2SAT 95
[2023-12-15 07:30] VITALS: BP 118/87; PULSE 76; RESP 20; TEMP 98.7; O2SAT 95
[2023-12-15 19:00] VITALS: BP 109/68; PULSE 78; RESP 16; TEMP 98.4; O2SAT 96
[2023-12-16 07:14] VITALS: RESP 16; O2SAT 97
[2023-12-16 08:15] VITALS: BP 128/86; PULSE 67; RESP 16; TEMP 98.8; O2SAT 97
[2023-12-16 12:25] VITALS: BP 124/84; PULSE 91; RESP 16
[2023-12-16 19:58] VITALS: BP 120/69; PULSE 84; RESP 14; TEMP 98.8
[2023-12-16 20:00] VITALS: RESP 14; O2SAT 96
[2023-12-17 07:00] VITALS: BP 129/83; PULSE 78; RESP 16; TEMP 98.7; O2SAT 95
[2023-12-17 12:45] VITALS: BP 123/74; PULSE 86
[2023-12-17 19:00] VITALS: RESP 16; O2SAT 99
[2023-12-17 20:04] VITALS: BP 125/88; PULSE 89; RESP 16; TEMP 98.6; O2SAT 99
[2023-12-18 07:00] VITALS: RESP 14; O2SAT 95
[2023-12-18 08:00] VITALS: BP 132/95; PULSE 85; RESP 14; TEMP 98.7; O2SAT 95
[2023-12-18 19:41] VITALS: RESP 16; O2SAT 95
[2023-12-18 19:52] VITALS: BP 125/82; PULSE 79; RESP 16; TEMP 98.1; O2SAT 95
[2023-12-19 07:00] VITALS: RESP 16; O2SAT 94
[2023-12-19 08:00] VITALS: BP 125/79; PULSE 63; RESP 16; TEMP 98.7; O2SAT 94
[2023-12-19 19:00] VITALS: RESP 15; O2SAT 94
[2023-12-19 20:00] VITALS: BP 111/72; PULSE 82; RESP 15; TEMP 98.4; O2SAT 94
[2023-12-20 07:45] VITALS: RESP 12; O2SAT 95
[2023-12-20 08:00] VITALS: BP 139/85; PULSE 77; RESP 12; TEMP 98.9; O2SAT 95
[2023-12-20 12:15] VITALS: BP 118/77; PULSE 72
[2023-12-20 19:00] VITALS: RESP 18; O2SAT 94
[2023-12-20 19:20] VITALS: BP 112/63; PULSE 73; RESP 18; TEMP 97.8; O2SAT 95
[2023-12-21 07:30] VITALS: BP 126/81; PULSE 84; RESP 16; TEMP 97.9; O2SAT 96
[2023-12-21 07:57] VITALS: RESP 16; O2SAT 96
[2023-12-21 12:48] VITALS: BP 131/84; PULSE 80; O2SAT 96
[2023-12-21 19:00] VITALS: RESP 14; O2SAT 92
[2023-12-21 20:00] VITALS: BP 115/69; PULSE 70; RESP 14; TEMP 98.8; O2SAT 92
[2023-12-22 07:30] VITALS: BP 112/73; PULSE 78; RESP 16; TEMP 98.7; O2SAT 95
[2023-12-22 12:28] VITALS: BP 122/78; PULSE 84; O2SAT 95
[2023-12-22] MEDS: hydrOXYzine 25 MG tablet PO PRN (14:00)
[2023-12-22 19:00] VITALS: RESP 16; O2SAT 96
[2023-12-22 20:00] VITALS: BP 110/71; PULSE 78; RESP 16; TEMP 98.2; O2SAT 96
[2023-12-23 07:00] VITALS: BP 104/73; PULSE 74; RESP 16; TEMP 98.8; O2SAT 96
[2023-12-23 13:01] VITALS: BP 125/80; PULSE 75
[2023-12-23 19:34] VITALS: RESP 16; O2SAT 94
[2023-12-23 19:46] VITALS: BP 111/73; PULSE 82; RESP 16; TEMP 98.6; O2SAT 94
[2023-12-24 07:10] VITALS: RESP 16; O2SAT 93
[2023-12-24 08:00] VITALS: BP 140/76; PULSE 68; RESP 16; TEMP 99.1; O2SAT 93
[2023-12-24 19:00] VITALS: RESP 16; O2SAT 95
[2023-12-24 20:43] VITALS: BP 119/68; PULSE 78; RESP 16; TEMP 99; O2SAT 95
[2023-12-25 07:25] VITALS: RESP 16; O2SAT 96
[2023-12-25 08:00] VITALS: BP 110/80; PULSE 66; RESP 16; TEMP 99; O2SAT 96
[2023-12-25 19:00] VITALS: RESP 16; O2SAT 94
[2023-12-25 20:00] VITALS: BP 122/71; PULSE 72; RESP 16; TEMP 98.5; O2SAT 94
[2023-12-26 07:00] VITALS: RESP 16; O2SAT 94
[2023-12-26 08:00] VITALS: BP 118/77; PULSE 84; RESP 16; TEMP 97.5; O2SAT 94
[2023-12-26 10:42] VITALS: BP 118/77; PULSE 84; RESP 16; TEMP 97.5; O2SAT 94
[2023-12-26 19:00] VITALS: RESP 16; O2SAT 96
[2023-12-26 20:00] VITALS: BP 134/79; PULSE 77; RESP 16; TEMP 98.1; O2SAT 96
[2023-12-27 07:00] VITALS: RESP 16; O2SAT 96
[2023-12-27 08:00] VITALS: BP 131/91; PULSE 78; RESP 16; TEMP 98.4; O2SAT 96
[2023-12-27 19:00] VITALS: RESP 15; O2SAT 94
[2023-12-27 19:33] VITALS: BP 109/63; PULSE 79; RESP 15; TEMP 98.5; O2SAT 94
[2023-12-28 07:00] VITALS: RESP 16; O2SAT 95
[2023-12-28 08:00] VITALS: BP 119/75; PULSE 68; RESP 16; TEMP 96.8; O2SAT 95
[2023-12-28 19:00] VITALS: BP 130/71; PULSE 101; RESP 16; RESP 20; TEMP 98.1; O2SAT 95
[2023-12-28 20:06] VITALS: BP 138/73; PULSE 81; RESP 20; TEMP 98.2; O2SAT 95
[2023-12-29 07:00] VITALS: RESP 15; O2SAT 97
[2023-12-29 08:00] VITALS: BP 117/75; PULSE 76; RESP 15; TEMP 98.2; O2SAT 97
[2023-12-29 13:10] VITALS: BP 124/65; PULSE 86
[2023-12-29 20:28] VITALS: BP 122/66; PULSE 80; RESP 20; TEMP 98.3; O2SAT 96
[2023-12-30 07:00] VITALS: BP 131/79; PULSE 70; RESP 16; TEMP 97.9; O2SAT 95
[2023-12-30 12:21] VITALS: BP 127/79; PULSE 81
[2023-12-30 20:00] VITALS: BP 124/76; PULSE 78; RESP 16; TEMP 97.7; O2SAT 96
[2023-12-31 07:00] VITALS: BP 126/81; PULSE 76; RESP 14; TEMP 97.9; O2SAT 96
[2023-12-31 12:30] VITALS: BP 125/85; PULSE 80
[2023-12-31 20:00] VITALS: BP 115/69; PULSE 77; RESP 14; TEMP 97.6; O2SAT 95
[2024-01-01 07:00] VITALS: RESP 16; O2SAT 96
[2024-01-01 08:00] VITALS: BP 123/77; PULSE 67; RESP 16; TEMP 98; O2SAT 96
[2024-01-01 19:00] VITALS: RESP 18; O2SAT 96
[2024-01-01 20:00] VITALS: BP 132/84; PULSE 75; RESP 18; TEMP 98.5; O2SAT 75
[2024-01-01 21:30] VITALS: BP 100/64; PULSE 77
[2024-01-02 07:00] VITALS: RESP 15; O2SAT 95
[2024-01-02 08:00] VITALS: BP 136/89; PULSE 77; RESP 15; TEMP 97.7; O2SAT 95
[2024-01-02] MEDS ORDERED: benzocaine/menthol oral lozeng 1 EACH BOX MM PRN (11:05)
[2024-01-02] MEDS ORDERED: HALLS - SOOTHE MENTHOL 1.8 MG cough drop LOZENGE MM PRN (11:09)
[2024-01-02 19:00] VITALS: RESP 15; O2SAT 95
[2024-01-02 19:29] VITALS: BP 118/68; PULSE 69; RESP 15; TEMP 97.8; O2SAT 95
[2024-01-03 07:00] VITALS: RESP 15; O2SAT 95
[2024-01-03 08:00] VITALS: BP 127/81; PULSE 84; RESP 14; TEMP 97.8; O2SAT 96
[2024-01-03 19:00] VITALS: RESP 15; O2SAT 95
[2024-01-03 19:21] VITALS: BP 120/74; PULSE 77; RESP 15; TEMP 98.1; O2SAT 95
[2024-01-04 07:28] VITALS: RESP 15; O2SAT 95
[2024-01-04 08:00] VITALS: BP 126/84; PULSE 93; RESP 16; TEMP 97.9; O2SAT 95
[2024-01-04 19:00] VITALS: RESP 18; O2SAT 94
[2024-01-04 20:00] VITALS: BP 126/84; PULSE 93; RESP 16; TEMP 97.9; O2SAT 95
[2024-01-04 21:42] VITALS: BP 129/84; PULSE 72; RESP 18; TEMP 97.7; O2SAT 94
[2024-01-05 07:00] VITALS: RESP 16; O2SAT 94
[2024-01-05 08:00] VITALS: BP 140/85; PULSE 72; RESP 16; TEMP 97.7; O2SAT 95
[2024-01-05 19:14] VITALS: BP 134/83; PULSE 75; RESP 20; TEMP 97.6; O2SAT 96
[2024-01-06 07:00] VITALS: RESP 16; O2SAT 96
[2024-01-06 08:00] VITALS: BP 106/62; PULSE 79; RESP 16; TEMP 97.2; O2SAT 98
[2024-01-06 13:05] VITALS: BP 134/90; PULSE 84
[2024-01-06 19:00] VITALS: BP 117/69; PULSE 80; RESP 12; TEMP 97; O2SAT 94
[2024-01-07 07:00] VITALS: RESP 16; O2SAT 96
[2024-01-07 08:00] VITALS: BP 116/87; PULSE 68; RESP 16; TEMP 97.8; O2SAT 94
[2024-01-07 19:00] VITALS: RESP 16; O2SAT 96
[2024-01-07 20:12] VITALS: BP 132/65; PULSE 74; RESP 20; TEMP 98.7; O2SAT 94
[2024-01-08 07:00] VITALS: RESP 14; O2SAT 95
[2024-01-08 08:00] VITALS: BP 138/83; PULSE 72; RESP 14; TEMP 97.8; O2SAT 95
[2024-01-08 19:00] VITALS: RESP 14; O2SAT 95
[2024-01-08 20:00] VITALS: BP 110/74; PULSE 78; RESP 14; TEMP 98; O2SAT 96
[2024-01-09 07:00] VITALS: RESP 16; O2SAT 95
[2024-01-09 07:30] VITALS: BP 125/78; PULSE 70; RESP 16; TEMP 97.9; O2SAT 95
[2024-01-09 12:00] VITALS: BP 127/78; PULSE 74
[2024-01-09 19:42] VITALS: BP 104/70; PULSE 72; RESP 15; TEMP 98.6; O2SAT 96
[2024-01-10 07:00] VITALS: RESP 16; O2SAT 94
[2024-01-10 08:00] VITALS: BP 113/77; PULSE 70; RESP 16; TEMP 98.1; O2SAT 94
[2024-01-10 13:15] VITALS: BP 113/69; PULSE 79; RESP 16; O2SAT 96
[2024-01-10 20:00] VITALS: BP 105/78; PULSE 87; RESP 18; TEMP 97.8; O2SAT 94
[2024-01-11 07:00] VITALS: RESP 16; O2SAT 94
[2024-01-11 08:00] VITALS: BP 115/73; PULSE 75; RESP 16; TEMP 98; O2SAT 94
[2024-01-11 12:45] VITALS: BP 116/75; PULSE 77; RESP 14; O2SAT 96
[2024-01-11 19:00] VITALS: RESP 16; O2SAT 94
[2024-01-11 20:00] VITALS: BP 123/70; PULSE 76; RESP 15; TEMP 98.7; O2SAT 95
[2024-01-12 07:00] VITALS: BP 109/62; PULSE 79; RESP 15; TEMP 98.3; O2SAT 93
[2024-01-12 12:40] VITALS: BP 118/78; PULSE 89
[2024-01-12 19:30] VITALS: RESP 14; O2SAT 96
[2024-01-12 20:00] VITALS: BP 106/79; PULSE 85; RESP 14; TEMP 99; O2SAT 96
[2024-01-13 07:00] VITALS: BP 124/77; PULSE 84; RESP 12; TEMP 98; O2SAT 95
[2024-01-13 19:00] VITALS: RESP 12; O2SAT 95
[2024-01-13 20:21] VITALS: BP 123/62; PULSE 86; RESP 15; TEMP 98.6; O2SAT 95
[2024-01-14 07:00] VITALS: RESP 15; O2SAT 95
[2024-01-14 08:00] VITALS: BP 123/67; PULSE 78; RESP 15; TEMP 98.1; O2SAT 95
[2024-01-14 19:00] VITALS: RESP 15; O2SAT 95
[2024-01-14 20:00] VITALS: BP 111/65; PULSE 83; RESP 16; TEMP 99.2; O2SAT 96
[2024-01-15 07:00] VITALS: BP 118/80; PULSE 62; RESP 12; TEMP 98.5; O2SAT 96
[2024-01-15 12:10] VITALS: BP 128/83; PULSE 73
[2024-01-15 19:00] VITALS: RESP 15; O2SAT 95
[2024-01-15 20:00] VITALS: BP 116/72; PULSE 76; RESP 18; TEMP 98.9; O2SAT 95
[2024-01-16 07:56] VITALS: RESP 12; O2SAT 96
[2024-01-16 08:00] VITALS: BP 144/76; PULSE 74; RESP 16; TEMP 98.3; O2SAT 97
[2024-01-16 19:06] VITALS: BP 117/70; PULSE 83; RESP 16; TEMP 98.8; O2SAT 97
[2024-01-17 07:00] VITALS: RESP 12; O2SAT 96
[2024-01-17 08:00] VITALS: BP 119/83; PULSE 74; RESP 16; TEMP 98; O2SAT 97
[2024-01-17 19:44] VITALS: BP 124/75; PULSE 80; RESP 20; TEMP 97.9; O2SAT 96
[2024-01-18 06:57] VITALS: RESP 12; O2SAT 96
[2024-01-18 08:46] VITALS: BP 140/83; PULSE 87; RESP 16; TEMP 98.5; O2SAT 96
[2024-01-18 19:00] VITALS: BP 113/69; PULSE 83; RESP 16; RESP 20; TEMP 97.8; O2SAT 96
[2024-01-18] MEDS: NYSTATIN CREAM - 30GM TUBE TP SCH (20:23)
[2024-01-19 07:00] VITALS: RESP 14; O2SAT 94
[2024-01-19 08:40] VITALS: BP 135/78; PULSE 75; RESP 14; TEMP 98.6; O2SAT 94
[2024-01-19 19:30] VITALS: RESP 16; O2SAT 94
[2024-01-19 20:00] VITALS: BP 106/59; PULSE 72; RESP 16; TEMP 97.9; O2SAT 99
[2024-01-20 07:00] VITALS: BP 125/72; PULSE 78; RESP 16; TEMP 98; O2SAT 96
[2024-01-20 12:10] VITALS: BP 119/68; PULSE 78
[2024-01-20 19:33] VITALS: BP 114/73; PULSE 80; RESP 18; TEMP 97.6; O2SAT 95
[2024-01-21 08:00] VITALS: BP 115/71; PULSE 68; RESP 14; TEMP 97.7; O2SAT 94
[2024-01-21 12:20] VITALS: BP 124/83; PULSE 78
[2024-01-21 19:00] VITALS: RESP 16; O2SAT 96
[2024-01-21 19:04] VITALS: BP 96/68; PULSE 81; RESP 16; TEMP 98.4; O2SAT 96
[2024-01-22 07:00] VITALS: BP 112/79; PULSE 76; RESP 18; TEMP 98.2; O2SAT 97
[2024-01-22 12:39] VITALS: BP 117/77; PULSE 81
[2024-01-22 12:40] VITALS: BP 123/82; PULSE 82
== END 2024-01-22 15:29 | DRG 885 ==
LOC: ER 21:03 → ED HOLD 11-22 12:00 → ADULT MH 11-22 14:08
PROVIDERS: ADMIT Psychiatry & Neurology Psychiatry; ATTEND Psychiatry & Neurology Psychiatry
PROC: GZHZZZZ Group Psychotherapy (ICD-10-PCS; principal; 2023-11-23)
PROC: GZ51ZZZ Individual Psychotherapy, Behavioral (ICD-10-PCS; 2023-12-06)
PROC: GZ56ZZZ Individual Psychotherapy, Supportive (ICD-10-PCS; 2023-12-22)
DX: F25.0 Schizoaffective disorder, bipolar type (principal); R45.851 Suicidal ideations; Z59.00 Homelessness unspecified; Z68.41 Body mass index [BMI] 40.0-44.9, adult; F32.9 Major depressive disorder, single episode, unspecified; E78.5 Hyperlipidemia, unspecified; G89.29 Other chronic pain; M54.9 Dorsalgia, unspecified; F41.9 Anxiety disorder, unspecified; J45.909 Unspecified asthma, uncomplicated; J02.9 Acute pharyngitis, unspecified; Z20.822 Contact with and (suspected) exposure to COVID-19; F15.90 Other stimulant use, unspecified, uncomplicated; E66.01 Morbid (severe) obesity due to excess calories; R09.81 Nasal congestion; G35 Multiple sclerosis; G40.909 Epilepsy, unspecified, not intractable, without status epilepticus; Z88.5 Allergy status to narcotic agent; Z88.6 Allergy status to analgesic agent; Z79.899 Other long term (current) drug therapy; Z56.0 Unemployment, unspecified
CPT/HCPCS: 36415; 71045; 80048; 80061; 80305; 80320; 80329; 81001; 81025; 83036; 84443; 85025; 87081; 87811; 99285; A6250; Q0177